=== PATIENT | female | born 1950 | race African-American/Black ===

== ENCOUNTER 2016-06-07 09:43 | Day surgery (SDC) | payer MEDICARE, MEDICAID ==
--- NOTE | 2016-06-02 12:15 | HISTORY AND PHYSICAL E ---
History and Physical NAME: MAYA JACKSON : 1950 AGE: 65Y ADMITTED: 06/07/2016 ROOM: ADMIT DATE: 06/07/2016 REFERRING PHYSICIAN: Dr. Miller. HISTORY OF PRESENT ILLNESS: Patient known to me 2007. She did have colon exam. She did have polyp in her transverse colon resect. At this time, patient for follow-up screening colonoscopy. ALLERGIES: 1. IODINE. 2. ASPIRIN. PAST SURGICAL HISTORY: Hysterectomy. MEDICATIONS: 1. Magnesium oxide. 2. Metformin. 3. Actos. 4. Effient. 5. Protonix. 6. Meloxicam. 7. Fluticasone. SOCIAL HISTORY: Does not smoke. Does not drink. REVIEW OF SYSTEMS: CARDIAC: Hypertension. ENDOCRINE: Negative. GASTROINTESTINAL: Colon screening. NEUROLOGIC: Fibromyalgia. Depression. FAMILY HISTORY: Parents are . Colonoscopy 2013 shows diverticulosis. She did have lipoma proximal ascending colon. She did have polyp in her sigmoid colon. She did have diverticulosis. She did have lipoma of transverse colon. Upper scope was done 2015: Esophagitis, gastritis, duodenitis. At this time, patient for colon exam, referred to us by Dr. Miller. Patient did have CT 08/2015 that shows colonic diverticulosis without diverticulitis. LABORATORY DATA: Her CA is 3.6. Iron is 37, low normal. She does have reflux. CONCLUSIONS: 1. Colon screening. 2. Diverticulosis. 3. Anemia. Patient seen 05/18 after upper scope. She does have history of polyps, diverticulosis. PLAN: Colon exam. DICTATING PHYSICIAN: ALICIA CORTES M.D. [id number] PHY#: [id number] ID: [id number] JOB#: [id number] ACCT: [id number] cc:ALICIA CORTES M.D., SWETANG M.D. >
[~2016-06-07 09:43] MED LIST: EPINEPHRINE INJ 1 MG/10 ML DISP.SYRIN ONE; FLUMAZENIL INJ 0.5 MG/5 ML VIAL IV ONE; GLUCAGON,HUMAN RECOMB 1 MG INJ ONE; GLYCOPYRROLATE INJ 0.4 MG/2 ML VIAL ONE; LIDOCAINE 2% JELLY 30 ML TUBE ONE; NALOXONE HCL INJ/PF 0.4 MG/1 ML SDV ONE; ONDANSETRON HCL INJ/PF 4 MG/2 ML SDV ONE; PROMETHAZINE HCL INJ 25 MG/1 ML VIAL ONE
[2016-06-07] MEDS: MIDAZOLAM 2 MG/2 ML INJ ONE ×3 (10:19→10:31)
[2016-06-07] MEDS: FENTANYL CITRATE INJ/PF 100 MCG/2 ML AMPUL ONE ×3 (10:21→10:33)
[2016-06-07 11:45] VITALS: BP 166/73
--- NOTE | 2016-06-07 14:46 | DISCHARGE SUMMARY E ---
Discharge Summary NAME: MAYA JACKSON : 1950 AGE: 65Y ADMITTED: 06/07/2016 DISCHARGED: 06/07/2016 HOSPITAL COURSE: The patient is a 65-year-old female who presented for colon screening. She does have history of polyps. Today's colonoscopy shows sessile polyp at mid transverse colon, biopsy obtained, diffuse diverticulosis, diminutive polyp at cecum, diminutive polyp at rectum. DISCHARGE PLAN: 1. Soft low-residue diet for 2 days. 2. Awaiting biopsy results. 3. Consider follow-up colonoscopy in 6 months to a year. MEDICATIONS: 1. Gabapentin. 2. Diovan. 3. She takes a blood thinner, Effient. 4. Tramadol. 5. Welchol. PLAN: The patient is to stop her blood thinners today and tomorrow. Awaiting biopsy results. The patient is to see us in the office in the next few days. The patient takes pantoprazole and Effient (prasugrel), stop this today and tomorrow. Consider follow-up colonoscopy in 6 months to a year. DICTATING PHYSICIAN: ALICIA CORTES M.D. [id number] PHY#: [id number] ID: [id number] JOB#: [id number] ACCT: [id number] cc:ALICIA CORTES M.D., SWETANG M.D. >
--- NOTE | 2016-06-07 14:47 | OPERATIVE REPORT E ---
Operative Report NAME: MAYA JACKSON : 1950 AGE: 65Y DATE OF SURGERY: 06/07/2016 ROOM: PREOPERATIVE DIAGNOSES: 1. History of polyps. 2. Colon screening. POSTOPERATIVE DIAGNOSES: 1. A 3 mm polyp cecum, small to biopsy, large amount of fecal material. 2. A 3 mm polyp mid transverse colon, biopsy obtained. 3. A 2 mm polyp rectum. SURGEON: ALICIA CORTES M.D. ANESTHESIA: Versed 4, fentanyl 100. FINDINGS: Prep inadequate. Large amount of diverticulosis. Moderate amount of solid stool scattered around the colon. Severe diverticulosis. A 2 mm polyp cecum. Tried to biopsy it on 2 occasions, unable because the stool keeps covering it. Transverse colon polyp 3 mm biopsy. Rectal polyp small, 2 mm. Diverticulosis. DESCRIPTION: Cecum: Normal. Ascending 2 mm polyp, small. The ascending colon diverticulosis. Transverse colon small polyp. Descending diverticulosis. Rectum: A 2 mm polyp. PLAN: Hold today and tomorrow. Awaiting biopsy results. Consider followup colonoscopy 6 months to a year with better prep. DICTATING PHYSICIAN: ALICIA CORTES M.D. [id number] PHY#: [id number] ID: [id number] JOB#: [id number] ACCT: [id number] cc:ALICIA CORTES M.D. >
== END 2016-06-07 11:50 | disposition home or self-care (01) ==
LOC: END 09:43
PROVIDERS: ATTEND Specialist
PROC: 0DBL8ZX Excision of Transverse Colon, Via Natural or Artificial Opening Endoscopic, Diagnostic (ICD-10-PCS; principal; 2016-06-07 10:00)
DX: Z12.11 Encounter for screening for malignant neoplasm of colon (principal); D12.3 Benign neoplasm of transverse colon; K62.1 Rectal polyp; D12.0 Benign neoplasm of cecum; D64.9 Anemia, unspecified; K57.30 Diverticulosis of large intestine without perforation or abscess without bleeding; I10 Essential (primary) hypertension; M79.7 Fibromyalgia; Z88.6 Allergy status to analgesic agent; Z79.84 Long term (current) use of oral hypoglycemic drugs; Z79.01 Long term (current) use of anticoagulants; Z79.899 Other long term (current) drug therapy
CPT/HCPCS: 45380; 82962; 88305 ×2; J2250; J3010; J1610; J2405; J0171; J2310; J2550; J3490

== ENCOUNTER → 2016-06-08 | Outpatient (CLI) | payer MEDICARE, MEDICAID ==
--- NOTE | 2016-06-08 11:17 | WOMENS IMAGING REPORT ---
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 TECHNIQUE: Dynamic and static grayscale images acquired of the pelvis via transabdominal approach an d recorded on PACS. Additional selected color Doppler and spectral images recorded. LIMITATIONS: None. FINDINGS: The uterus and ovaries are surgically absent. The palpable finding corresponds to a septa iris cystic lesion located just below the skin, measuring 6 x 10 mm. There are lymph nodes present in the pubic and inguinal regions. TECHNICAL DOCUMENTATION: JOB ID: [id number] [employer]- All Rights Reserved
== END ==
LOC: WI 08:58
PROVIDERS: ATTEND Family Medicine
DX: I65.29 Occlusion and stenosis of unspecified carotid artery (principal); R59.0 Localized enlarged lymph nodes
CPT/HCPCS: 76856; 93880

== ENCOUNTER → 2016-11-27 | Day surgery (SDC) | payer MEDICARE, MEDICAID ==
[~2016-11-27] MED LIST changes: +BUPIVACAINE HCL 0.5 % INJ/PF 30 ML SDV ONE; -EPINEPHRINE INJ 1 MG/10 ML DISP.SYRIN ONE; -FLUMAZENIL INJ 0.5 MG/5 ML VIAL IV ONE; -GLUCAGON,HUMAN RECOMB 1 MG INJ ONE; -GLYCOPYRROLATE INJ 0.4 MG/2 ML VIAL ONE; -LIDOCAINE 2% JELLY 30 ML TUBE ONE; +METHYLPREDNISOLONE ACETATE INJ 40 MG/1 ML ML ONE; -NALOXONE HCL INJ/PF 0.4 MG/1 ML SDV ONE; -ONDANSETRON HCL INJ/PF 4 MG/2 ML SDV ONE; -PROMETHAZINE HCL INJ 25 MG/1 ML VIAL ONE
--- NOTE | 2016-11-27 16:33 | RADIOLOGY REPORT (SQ) ---
EXAM DESCRIPTION: INJECT/ASPIR HIP/SHLDR/KNEE; HIP UNILATERAL-1 VIEW; FLUORO/NEEDLE PLACEMENT COMPLETED DATE/TIME: 11/27/2016 3:14 pm REASON FOR STUDY: PAIN IN R HIP; PAIN IN R HIP M25.551 PAIN IN RIGHT HIP COMPARISON: None. FLUOROSCOPY TIME: 19 seconds. No images saved to PACS. LIMITATIONS: None. PROCEDURE: SITE OF INJECTION: Right hip. LOCALIZING CONTRAST TYPE AND DOSE: Iodinated contrast was not used due to history of allergy. MEDICATION TYPE AND DOSE: 3 mL Depo-Medrol and 5 mL Sensorcaine. Using local anesthesia and sterile technique with fluoroscopic guidance, the needle was advanced into the joint. Iodinated contrast was injected to verify intraarticular placement. This was followed by therapeutic injection of the indicated medications. The needle was removed. There were no immediat e complications. Preprocedure pain level: 10/10. Postprocedure pain level: 0/10. IMPRESSION: THERAPEUTIC INJECTION OF THE RIGHT HIP JOINT ABOVE. COMMENT: Patient medication list reviewed: Yes- Quality ID# 130:Eligible professional attests to doc umenting in the medical record they obtained, updated, or reviewed the patient's current medications. . Quality ID 145: Final reports for procedures using fluoroscopy that document radiation exposure susana violette, or exposure time and number of fluorographic images (if radiation exposure indices are not avail able) TECHNICAL DOCUMENTATION: JOB ID: [id number] [employer]- All Rights Reserved
== END ==
LOC: RAD 14:32
PROVIDERS: ATTEND Physician Assistant
PROC: 3E0U33Z Introduction of Anti-inflammatory into Joints, Percutaneous Approach (ICD-10-PCS; principal; 2016-11-27)
DX: M25.551 Pain in right hip (principal)
CPT/HCPCS: 73501; 20610; 77002; J1020

== ENCOUNTER → 2017-04-09 | Outpatient (CLI) | payer MEDICARE, MEDICAID | LOC: OD 14:23 | PROVIDERS: ATTEND Internal Medicine | DX: I25.10 Atherosclerotic heart disease of native coronary artery without angina pectoris (principal); I10 Essential (primary) hypertension; I34.0 Nonrheumatic mitral (valve) insufficiency; I35.1 Nonrheumatic aortic (valve) insufficiency; E78.4 Other hyperlipidemia; E11.9 Type 2 diabetes mellitus without complications; I95.1 Orthostatic hypotension; Z79.899 Other long term (current) drug therapy; Z98.61 Coronary angioplasty status ==

== ENCOUNTER → 2017-04-11 | Outpatient (CLI) | payer MEDICARE, MEDICAID ==
[2017-04-11 10:52] LABS: ALANINE AMINOTRANSFERASE 29 U/L (9-52); ALBUMIN 3.9 g/dL (3.5-5.0); ALKALINE PHOSPHATASE 98 U/L (38-126); ASPARTATE AMINO TRANSFERASE 22 U/L (14-36); BILIRUBIN,DIRECT 0.3 mg/dL (0.0-0.4); BILIRUBIN,TOTAL 0.5 mg/dL (0.2-1.3); CHOLESTEROL 192.53 mg/dL (0-200); Direct HDL 67 mg/dL (>40); TOTAL PROTEIN 6.6 g/dL (6.3-8.2); TRIGLYCERIDES 140 mg/dL (<150)
[2017-04-11 11:03] LABS: DIRECT LDL 101 mg/dL (<100)
== END ==
LOC: OD 09:41
PROVIDERS: ATTEND Internal Medicine
DX: I25.10 Atherosclerotic heart disease of native coronary artery without angina pectoris (principal); I10 Essential (primary) hypertension; E78.4 Other hyperlipidemia; I34.0 Nonrheumatic mitral (valve) insufficiency; I35.1 Nonrheumatic aortic (valve) insufficiency; Z98.61 Coronary angioplasty status; E11.9 Type 2 diabetes mellitus without complications; I95.1 Orthostatic hypotension; Z79.899 Other long term (current) drug therapy
CPT/HCPCS: 36415; 80061; 80076

== ENCOUNTER → 2017-06-04 | Outpatient (CLI) | payer MEDICARE, MEDICAID ==
--- NOTE | 2017-06-04 13:58 | WOMENS IMAGING REPORT ---
EXAM DESCRIPTION: BONE DENSITY HIP/SPINE COMPLETED DATE/TIME: 06/04/2017 10:59 am REASON FOR STUDY: OSTEOPOROSIS M81.0 AGE-RELATED OSTEOPOROSIS W/O CURRENT PATHOLOGICAL FRAC COMPARISON: None. TECHNIQUE: Dual-Energy X-ray Absorptiometry (DEXA) of the AP Spine and Hip. LIMITATIONS: None. FINDINGS: LUMBAR SPINE: The bone mineral density (BMD) measured from L1-L4 in the AP projection correlates with a T-score of 0.7, which is normal as defined by the World Health Organization. HIP: The bone mineral density (BMD) measured in the left hip correlates with a T-score of 0.5, which is no rmal as defined by the World Health Organization. IMPRESSION: 1. LUMBAR SPINE: NORMAL. 2. HIP: NORMAL. COMMENT: The World Health Organization defines low BMD as follows: T-score: Normal: Greater than -1.0 Osteopenia: Between -1.0 and -2.5 Osteoporosis: Less than -2.5 without fractures Established osteoporosis: Less than -2.5 with fractures In general, you may wish to consider: Diagnosis Treatment Follow-up DEXA Normal BMD Prevention 2-3 years Osteopenia Prevention/Therapy 1-2 years Osteoporosis Therapy Yearly TECHNICAL DOCUMENTATION: JOB ID: [id number] [employer]- All Rights Reserved
== END ==
LOC: WI 10:25
PROVIDERS: ATTEND Physician Assistant
DX: M81.0 Age-related osteoporosis without current pathological fracture (principal)
CPT/HCPCS: 77080

== ENCOUNTER → 2017-12-31 | Outpatient (CLI) | payer MEDICARE, MEDICAID | LOC: RAD 09:01 | PROVIDERS: ATTEND Internal Medicine Medical Oncology | DX: C88.4 Extranodal marginal zone B-cell lymphoma of mucosa-associated lymphoid tissue [MALT-lymphoma] (principal); Z53.8 Procedure and treatment not carried out for other reasons ==

== ENCOUNTER 2018-01-09 08:51 | Day surgery (SDC) | payer MEDICARE, MEDICAID ==
[2018-01-09 10:02] LABS: INTERNATIONAL RATION (INR) 0.99; PARTIAL THROMBOPLASTIN TIME 34.5 SEC (23.5-35.8); PROTHROMBIN TIME 13.6 SEC (11.4-15.4)
[2018-01-09 10:04] LABS: ABSOLUTE LYMPHOCYTES (AUTO) 1.8 10^3/uL (0.5-4.7); ABSOLUTE MONOCYTES (AUTO) 0.5 10^3/uL (0.1-1.4); ABSOLUTE NEUT (AUTO) 5.6 10^3/uL (1.7-8.2); BASOPHILS % (AUTO) 0.3 % (0-2); EOSINOPHILS % (AUTO) 0.4 % (0-6); HEMATOCRIT 37.6 % (36.0-47.0); HEMOGLOBIN 12.4 g/dL (12.0-15.5); LYMPHOCYTES % (AUTO) 22.3 % (13-45); MEAN CORPUSCULAR HEMOGLOBIN 29.4 pg (27.0-33.4); MEAN CORPUSCULAR HGB CONC 33.1 g/dL (32.0-36.0); MEAN CORPUSCULAR VOLUME 89 fl (80-97); MONOCYTES % (AUTO) 6.4 % (3-13); PLATELET COUNT 236 10^3/uL (150-450); RED BLOOD COUNT 4.23 10^6/uL (3.72-5.28); RED CELL DISTRIBUTION WIDTH 14.7 % (11.5-14.0); SEGMENTED NEUTROPHILS % (AUTO) 70.6 % (42-78); TOTAL CELLS COUNTED % (AUTO) 100 %
[2018-01-09 10:18] LABS: BLOOD UREA NITROGEN 16 mg/dL (7-20); GLUCOSE 157 mg/dL (75-110)
[2018-01-09] MEDS ORDERED: MIDAZOLAM 2 MG/2 ML INJ ONE (11:18)
[2018-01-09] MEDS ORDERED: FENTANYL CITRATE INJ/PF 100 MCG/2 ML AMPUL ONE ×2 (11:19→11:47)
[2018-01-09] MEDS ORDERED: LIDOCAINE 1% INJ-PF (10 MG/ML) 30 ML SDV ONE (11:19)
--- NOTE | 2018-01-09 12:28 | RADIOLOGY REPORT (SQ) ---
EXAM DESCRIPTION: CT BIOPSY BONE MARROW, NEEDLE; CT NEEDLE PLACEMENT COMPLETED DATE/TIME: 01/09/2018 11:55 am REASON FOR STUDY: MALT-LYMPHOMA; MALT-LYMPHOMA, NEEDLE PLACEMENT C88.4 EXTRNOD MRGNL ZN B-CELL LYMP H OF [place] LYMPHOID Z79.01 CORRECTION (CURRENT) USE OF ANTICOAGULANTS Z79.899 OTHER DIRECTOR DATA PROCESSING (CURRENT) DRUG THERAPY COMPARISON: None. TECHNIQUE: CT guided biopsy of the right iliac crest bone marrow performed with conscious sedation. CT Fluoroscopy Time: [address] scanners at this facility use dose modulation, iterative reconstruction, and/or weight based d osing when appropriate to reduce radiation dose to as low as reasonably achievable (ALARA). [facility]: Dose Right [facility]: CareDose [facility]: Dose Right [facility]: Teradose 4D [facility]: CapRally RADIATION DOSE: CT Rad equipment meets quality standard of care and radiation dose reduction techniq ues were employed. CTDIvol: 4.0 - 20.2 mGy. DLP: 475 mGy-cm.mGy. FINDINGS: After obtaining informed consent and explaining the risks and benefits of conscious sedati on,the patient agreed to the procedure. Prior to the procedure, a time out was performed to verify th e patient's identity and planned procedure. IV conscious sedation was administered and physician direction by the registered nurse using 2 millig thong of Versed and 100 micrograms of fentanyl. Physiologic monitoring was provided before, during, an d after sedation. The total sedation time was 34 minutes. Documentation face to face time, the performing proceduralist, spent monitoring the patient: [address] scanning was performed to localize the percutaneous site for the biopsy approach. After sterile skin prep and local lidocaine for skin and deep tissue anesthesia, a coaxial biopsy nee dle was used to obtain a bone marrow aspirate, and a bone marrow core of tissue. The biopsy tissue wa s received by [facility] lab to be sent out for evaluation. There were no immediate complications. Pathology is pending at the time of dictation. IMPRESSION: CT GUIDED ASPIRATE AND CORE BIOPSY OF THE RIGHT POSTERIOR ILIAC CREST BONE MARROW PERFOR MED WITHOUT IMMEDIATE COMPLICATION. PATHOLOGY PENDING. IV CONSCIOUS SEDATION WITHOUT COMPLICATION. COMMENT: Quality ID 145: Final reports for procedures using fluoroscopy that document radiation exp osure indices, or exposure time and number of fluorographic images (if radiation exposure indices are not available) Patient medication list reviewed: Yes- Quality ID# 130:Eligible professional attests to documenting i n the medical record they obtained, updated, or reviewed the patient's current medications.. TECHNICAL DOCUMENTATION: JOB ID: [id number] Quality ID# 436: Final reports with documentation of one or more dose reduction techniques (e.g., Aut omated exposure control, adjustment of the mA and/or kV according to patient size, use of iterative r econstruction technique) 2010 [employer]- All Rights Reserved Reading location - IP/workstation name: [email or web address]
--- NOTE | 2018-01-09 12:28 | RADIOLOGY REPORT (SQ) ---
EXAM DESCRIPTION: CT BIOPSY BONE MARROW, NEEDLE; CT NEEDLE PLACEMENT COMPLETED DATE/TIME: 01/09/2018 11:55 am REASON FOR STUDY: MALT-LYMPHOMA; MALT-LYMPHOMA, NEEDLE PLACEMENT C88.4 EXTRNOD MRGNL ZN B-CELL LYMP H OF [place] LYMPHOID Z79.01 PRISON (CURRENT) USE OF ANTICOAGULANTS Z79.899 OTHER PUBLIC SERVICES ASSISTANT (CURRENT) DRUG THERAPY COMPARISON: None. TECHNIQUE: CT guided biopsy of the right iliac crest bone marrow performed with conscious sedation. CT Fluoroscopy Time: [address] scanners at this facility use dose modulation, iterative reconstruction, and/or weight based d osing when appropriate to reduce radiation dose to as low as reasonably achievable (ALARA). [facility]: Dose Right [facility]: CareDose [facility]: Dose Right [facility]: Teradose 4D [facility]: [employer] RADIATION DOSE: CT Rad equipment meets quality standard of care and radiation dose reduction techniq ues were employed. CTDIvol: 4.0 - 20.2 mGy. DLP: 475 mGy-cm.mGy. FINDINGS: After obtaining informed consent and explaining the risks and benefits of conscious sedati on,the patient agreed to the procedure. Prior to the procedure, a time out was performed to verify th e patient's identity and planned procedure. IV conscious sedation was administered and physician direction by the registered nurse using 2 millig thong of Versed and 100 micrograms of fentanyl. Physiologic monitoring was provided before, during, an d after sedation. The total sedation time was 34 minutes. Documentation face to face time, the performing proceduralist, spent monitoring the patient: [address] scanning was performed to localize the percutaneous site for the biopsy approach. After sterile skin prep and local lidocaine for skin and deep tissue anesthesia, a coaxial biopsy nee dle was used to obtain a bone marrow aspirate, and a bone marrow core of tissue. The biopsy tissue wa s received by [facility] lab to be sent out for evaluation. There were no immediate complications. Pathology is pending at the time of dictation. IMPRESSION: CT GUIDED ASPIRATE AND CORE BIOPSY OF THE RIGHT POSTERIOR ILIAC CREST BONE MARROW PERFOR MED WITHOUT IMMEDIATE COMPLICATION. PATHOLOGY PENDING. IV CONSCIOUS SEDATION WITHOUT COMPLICATION. COMMENT: Quality ID 145: Final reports for procedures using fluoroscopy that document radiation exp osure indices, or exposure time and number of fluorographic images (if radiation exposure indices are not available) Patient medication list reviewed: Yes- Quality ID# 130:Eligible professional attests to documenting i n the medical record they obtained, updated, or reviewed the patient's current medications.. TECHNICAL DOCUMENTATION: JOB ID: [id number] Quality ID# 436: Final reports with documentation of one or more dose reduction techniques (e.g., Aut omated exposure control, adjustment of the mA and/or kV according to patient size, use of iterative r econstruction technique) 2010 [employer]- All Rights Reserved Reading location - IP/workstation name: [facility]-[email or web address]
[2018-01-09 14:16] VITALS: BP 147/82
== END 2018-01-09 14:05 | disposition home or self-care (01) ==
LOC: RAD 08:51
PROVIDERS: ATTEND Internal Medicine Medical Oncology
DX: C88.4 Extranodal marginal zone B-cell lymphoma of mucosa-associated lymphoid tissue [MALT-lymphoma] (principal); Z79.01 Long term (current) use of anticoagulants; Z79.899 Other long term (current) drug therapy; Z79.82 Long term (current) use of aspirin
CPT/HCPCS: 36415; 84520; 82565; 82947; 85025; 85610; 85730; 38221; 77012; J2250; J3010; J3490

== ENCOUNTER → 2018-01-13 | Outpatient (CLI) | payer MEDICARE, MEDICAID ==
--- NOTE | 2018-01-14 10:20 | RADIOLOGY REPORT (SQ) ---
EXAM DESCRIPTION: PET CT SKULL/THIGH COMPLETED DATE/TIME: 01/13/2018 6:36 pm REASON FOR STUDY: LYMPHOMA C88.4 EXTRNOD MRGNL ZN B-CELL LYMPH OF [place]UC[place]-ASS[place] LYMPHOID COMPARISON: Bone marrow biopsy 01/09/2018 CT abdomen pelvis 02/27/2017 RADIONUCLIDE AND DOSE: 10 mCi F18 FDG The route of agent administration: Intravenous FASTING BLOOD SUGAR: 140 mg/dl CONTRAST TYPE AND DOSE: No CT contrast given. TECHNIQUE: Blood glucose level was verified. Above dose of FDG was injected intravenously. 2-D seg mented attenuation correction images were obtained from the base of the skull to the midthighs. Nonc ontrast CT images were obtained for attenuation correction and fusion with emission images. CT image s were performed without oral or intravenous contrast and are not sensitive for parenchymal lesions. A series of overlapping emission PET images were obtained. Images reviewed and manipulated at [facility] work station by the radiologist. Images stored on PACS. LIMITATIONS: None. FINDINGS: HEAD AND NECK: No areas of abnormal metabolic activity in the soft tissues of the head and neck. CHEST: No areas of abnormal metabolic activity in the chest. ABDOMEN AND PELVIS: No areas of abnormal metabolic activity in the abdomen or pelvis. Expected physi ologic activity is present in the genitourinary system and bowel. PROXIMAL LOWER EXTREMITIES: No areas of abnormal metabolic activity in the soft tissues of the lower extremities. BONES: No abnormal metabolic activity in the visualized skeleton. ADDITIONAL CT FINDINGS: Post cholecystectomy and hysterectomy. Scattered colonic diverticuli. Ventr al hernia containing nonobstructed small bowel and colon. Cervical fusion. Right hip replacement. OTHER: Liver background activity 2.8 SUV. Blood pool background activity 2.1 SUV IMPRESSION: No hypermetabolic lesions are identified TECHNICAL DOCUMENTATION: JOB ID: [id number] [employer]- All Rights Reserved Reading location - IP/workstation name: [email or web address]
== END ==
LOC: RAD 15:54
PROVIDERS: ATTEND Internal Medicine Medical Oncology
DX: C88.4 Extranodal marginal zone B-cell lymphoma of mucosa-associated lymphoid tissue [MALT-lymphoma] (principal)
CPT/HCPCS: 78815; A9552

== ENCOUNTER → 2018-02-28 | Outpatient (CLI) | payer MEDICARE, MEDICAID ==
[2018-02-28 13:39] LABS: ABSOLUTE EOSINOPHILS # (AUTO) 0.1 10^3/uL (0.0-0.6); ABSOLUTE LYMPHOCYTES (AUTO) 2.4 10^3/uL (0.5-4.7); ABSOLUTE MONOCYTES (AUTO) 0.7 10^3/uL (0.1-1.4); ABSOLUTE NEUT (AUTO) 6.2 10^3/uL (1.7-8.2); BASOPHILS % (AUTO) 0.4 % (0-2); EOSINOPHILS % (AUTO) 0.8 % (0-6); HEMATOCRIT 39.5 % (36.0-47.0); HEMOGLOBIN 13.3 g/dL (12.0-15.5); LYMPHOCYTES % (AUTO) 25.5 % (13-45); MEAN CORPUSCULAR HEMOGLOBIN 29.4 pg (27.0-33.4); MEAN CORPUSCULAR HGB CONC 33.7 g/dL (32.0-36.0); MEAN CORPUSCULAR VOLUME 87 fl (80-97); MONOCYTES % (AUTO) 7.5 % (3-13); PLATELET COUNT 277 10^3/uL (150-450); RED BLOOD COUNT 4.53 10^6/uL (3.72-5.28); RED CELL DISTRIBUTION WIDTH 14.5 % (11.5-14.0); SEGMENTED NEUTROPHILS % (AUTO) 65.8 % (42-78); TOTAL CELLS COUNTED % (AUTO) 100 %; WHITE BLOOD COUNT 9.4 10^3/uL (4.0-10.5)
== END ==
LOC: OD 12:36
PROVIDERS: ATTEND Radiology Radiation Oncology
DX: C88.4 Extranodal marginal zone B-cell lymphoma of mucosa-associated lymphoid tissue [MALT-lymphoma] (principal)
CPT/HCPCS: 36415; 83615; 85025

== ENCOUNTER → 2018-03-19 | Outpatient (CLI) | payer MEDICARE, MEDICAID ==
--- NOTE | 2018-03-19 12:11 | WOMENS IMAGING REPORT ---
EXAM DESCRIPTION: 3D DX MAMMO BILAT COMPLETED DATE/TIME: 03/19/2018 10:29 am REASON FOR STUDY: BILATERAL DIAGNOSTIC MAMMO/C50.411 COMPARISON: Multiple since 2010 TECHNIQUE: Standard craniocaudal and mediolateral oblique views of each breast recorded using digita l acquisition and breast tomosynthesis. Additional left breast 90 mediolateral view. LIMITATIONS: None. FINDINGS: RIGHT BREAST MASSES: No suspicious masses. CALCIFICATIONS: No new or suspicious calcifications. ARCHITECTURAL DISTORTION: None. DEVELOPING DENSITY: None. ASYMMETRY: None noted. OTHER: No other significant findings. LEFT BREAST MASSES: No suspicious masses. CALCIFICATIONS: No new or suspicious calcifications. ARCHITECTURAL DISTORTION: Tiny focus of postsurgical architectural distortion in the upper outer quad rant left breast at the site of prior lumpectomy. DEVELOPING DENSITY: None. ASYMMETRY: None noted. OTHER: No other significant finding. Read with the assistance of CAD: .[facility] - R2 [employer] Version 1.3 .[facility] - R2 Cenova Version 1.3 .[facility] - R2 Cenova Version 2.4 .[facility] - R2 Cenova Version 2.4 .[facility] - R2 Website/Blog Editor Version 9.2 IMPRESSION: No mammographic/tomosynthesis evidence for malignancy bilaterally BREAST DENSITY: b. There are scattered areas of fibroglandular density. BIRAD: 2 Benign findings. RECOMMENDATION: RECOMMENDED FOLLOW UP: Please continue yearly bilateral screening mammography/ tomos ynthesis in 2019 SPECIFIC INTERVENTION/IMAGING/CONSULTATION RECOMMENDED:No additional intervention/ imaging/consultati on needed at this time. COMMUNICATION:Patient notified by letter COMMENT: The patient has been notified of the results by letter per SA requirements. Additional no tification policies are in place for contacting patient with suspicious or incomplete findings. Quality ID #225: The [employer] recommends an annual screening mammogram for women aged 40 years or over. This facility utilizes a reminder system to ensure that all patients receive reminder letters, and/or direct phone calls for appointments. This includes reminders for routine scr eening mammograms, diagnostic mammograms, or other Breast Imaging Interventions when appropriate. Th is patient will be placed in the appropriate reminder system. The [employer] (ACR) has developed recommendations for screening MRI of the breast s in certain patient populations, to be used in conjunction with mammography. Breast MRI surveillanc e may be appropriate for women with more than 20% lifetime risk of developing breast cancer as deter mined by genetic testing, significant family history of the disease, or history of mantle radiation f or Hodgkins Disease. ACR Practice Guidelines 2008. DBT Technology DBT is a type of tomographic mammography. With conventional mammography, overlapping breast tissue ma y make lesions difficult to detect, even with good compression. DBT uses an x-ray tube that rotates a round the breast, taking images at different angles. These images are then combined to create thin sl ices of the breast that the radiologist can view as a 3D reconstruction. The [employer] unit can perform full-field digital mammograms (2D imaging); or DBT (3D imaging); or both, in a combination mode that quickly performs both the mammogram and the tomosynthesis scan while the breast is still compressed. PQRS 6045F: Fluoroscopic imaging is not utilized for breast tomosynthesis. TECHNICAL DOCUMENTATION: FINDING NUMBER: (1) ASSESSMENT: (1) JOB ID: [id number] [employer]- All Rights Reserved Reading location - IP/workstation name: [facility]-RR
== END ==
LOC: WI 09:57
PROVIDERS: ATTEND Internal Medicine Hematology & Oncology
DX: C50.411 Malignant neoplasm of upper-outer quadrant of right female breast (principal)
CPT/HCPCS: 77066; G0279; 77062

== ENCOUNTER → 2018-04-12 | Outpatient (CLI) | payer MEDICARE, MEDICAID ==
[2018-04-12 08:33] LABS: ANION GAP 12 (5-19); BLOOD UREA NITROGEN 16 mg/dL (7-20); CALCIUM 9.7 mg/dL (8.4-10.2); CARBON DIOXIDE 27 mmol/L (22-30); CHLORIDE 103 mmol/L (98-107); GLUCOSE 127 mg/dL (75-110); POTASSIUM 4.8 mmol/L (3.6-5.0); SODIUM 142.2 mmol/L (137-145)
== END ==
LOC: OD 07:09
PROVIDERS: ATTEND Family Medicine
DX: E87.5 Hyperkalemia (principal)
CPT/HCPCS: 36415; 80048

== ENCOUNTER → 2019-03-26 | Outpatient (CLI) | payer MEDICARE, MEDICAID ==
--- NOTE | 2019-03-26 14:26 | WOMENS IMAGING REPORT ---
EXAM DESCRIPTION: 3D DX MAMMO BILAT COMPLETED DATE/TIME: 03/26/2019 12:00 pm REASON FOR STUDY: C50.411 MALIGNANT NEOPLASM OF UPPER-OUTER QUADRANT OF RIGHT FEMALE BREAST COMPARISON: Multiple since 2010 EXAM PARAMETERS: Standard craniocaudal and mediolateral oblique views of each breast recorded using digital acquisition and breast tomosynthesis. Additional left breast 90 mediolateral view Read with the assistance of CAD: .[employer] Version 9.2 LIMITATIONS: None. FINDINGS: RIGHT BREAST MASSES: No suspicious masses. CALCIFICATIONS: No new or suspicious calcifications. ARCHITECTURAL DISTORTION: None. ASYMMETRY: None noted. OTHER: No other significant findings. LEFT BREAST MASSES: No suspicious masses. CALCIFICATIONS: Stable calcifications in the left retroareolar region ARCHITECTURAL DISTORTION: Small focus of architectural distortion left breast 12 o'clock position, ab out 6 cm from the nipple in the area of prior lumpectomy. ASYMMETRY: None noted. OTHER: No other significant finding. IMPRESSION: No mammographic/ tomosynthesis evidence for malignancy bilaterally BREAST DENSITY: b. There are scattered areas of fibroglandular density. BIRAD: ASSESSMENT: 2 Benign findings. RECOMMENDATION: RECOMMENDED FOLLOW UP: Please continue yearly mammography/ tomosynthesis. SPECIFIC INTERVENTION/IMAGING/CONSULTATION RECOMMENDED:No additional intervention/ imaging/consultati on needed at this time. COMMUNICATION:The negative/benign results were communicated to the patient. COMMENT: The patient has been notified of the results by letter per MQSA requirements. Additional no tification policies are in place for contacting patient with suspicious or incomplete findings. Quality ID #225: The [employer] recommends an annual screening mammogram for women aged 40 years or over. This facility utilizes a reminder system to ensure that all patients receive reminder letters, and/or direct phone calls for appointments. This includes reminders for routine scr eening mammograms, diagnostic mammograms, or other Breast Imaging Interventions when appropriate. Th is patient will be placed in the appropriate reminder system. TECHNICAL DOCUMENTATION: FINDING NUMBER: (1) ASSESSMENT: (1) JOB ID: [id number] [employer]- All Rights Reserved Reading location - IP/workstation name: [email or web address]
== END ==
LOC: WI 11:15
PROVIDERS: ATTEND Internal Medicine Hematology & Oncology
DX: C50.411 Malignant neoplasm of upper-outer quadrant of right female breast (principal)
CPT/HCPCS: 77066; G0279; 77062

== ENCOUNTER 2019-11-01 23:27 | Inpatient (IN) | payer MEDICARE, MEDICAID ==
[2019-11-02] MEDS ORDERED: NORMAL SALINE 1000 ML 1,000 ML IV ONE (00:20)
--- NOTE | 2019-11-02 00:29 | ER Document Report ---
ED GI/ - General Chief Complaint: Nausea/Vomiting Stated Complaint: NAUSEA,VOMITING,DIZZINESS Time Seen by Provider: 11/02/19 00:17 Primary Care Provider: FABIAN JOSE MD [ACTIVE STAFF] - Follow up as needed Mode of Arrival: Medic Information source: Patient Notes: 69-year-old female presented to ED for complaint of nausea and vomiting. She states she ate seafood dinner about 630 tonight at 10 PM tonight she started having nausea and vomiting. She states she has vomited 3 times since then. She is alert oriented respirations regular nonlabored speaking in full sentences. She did come in via EMS and they gave her Zofran in route to the hospital. TRAVEL OUTSIDE OF THE [place] IN LAST 30 DAYS: No - HPI Patient complains to provider of: Vomiting. No: Abdominal pain Onset: This evening Timing/Duration: Sudden Quality of pain: No pain Pain Level: Denies Associated symptoms: Nausea, Vomiting. denies: Diarrhea Exacerbated by: Denies Relieved by: Denies Similar symptoms previously: Yes Recently seen / treated by doctor: No - Related Data Allergies/Adverse Reactions: iodine [Iodine] Allergy (Severe, Verified 11/02/19 04:11) Anaphylaxis aspirin [Aspirin] Adverse Reaction (Mild, Verified 11/02/19 04:11) GI upset Past Medical History - General Information source: Patient - Social History Smoking Status: Former Smoker Frequency of alcohol use: Occasional Drug Abuse: None Family History: Reviewed & Not Pertinent Patient has suicidal ideation: No Patient has homicidal ideation: No - Past Medical History Cardiac Medical History: Reports: Hx Coronary Artery Disease - CARDIAC STENT X 1, Hx Hypercholesterolemia, Hx Hypertension - ON MEDICATION Pulmonary Medical History: Reports: None EENT Medical History: Reports: None Neurological Medical History: Reports: None Endocrine Medical History: Reports: Hx Diabetes Mellitus Type 2 Renal/ Medical History: Reports: None Malignancy Medical History: Reports: None GI Medical History: Reports: Hx Gastroesophageal Reflux Disease, Hx Irritable Bowel Musculoskeletal Medical History: Reports Hx Arthritis - ALL OVER, Reports Hx Fibromyalgia, Reports Hx Musculoskeletal Deformity Skin Medical History: Reports None Psychiatric Medical History: Reports: None Traumatic Medical History: Reports: None Infectious Medical History: Reports: None Past Surgical History: Reports: Hx Cardiac Catheterization, Hx Cardiac Surgery - stents 2011, Hx Cholecystectomy, Hx Hysterectomy, Hx Orthopedic Surgery - left elbow surgery, Other - Stent placement in 2011 - Immunizations Hx Diphtheria, Pertussis, Tetanus Vaccination: Yes - 2018 Hx Pneumococcal Vaccination: 02/05/16 Review of Systems - Review of Systems Constitutional: No symptoms reported EENT: No symptoms reported Cardiovascular: No symptoms reported Respiratory: No symptoms reported Gastrointestinal: Nausea, Vomiting. denies: Abdominal pain, Diarrhea Genitourinary: No symptoms reported Female Genitourinary: No symptoms reported Musculoskeletal: No symptoms reported Skin: No symptoms reported Hematologic/Lymphatic: No symptoms reported Neurological/Psychological: No symptoms reported -: Yes All other systems reviewed and negative Physical Exam - Vital signs Vitals: Temp 97.4 F 11/01/19 23:35 Interpretation: Hypertensive - General General appearance: Appears well, Alert - HEENT Head: Normocephalic, Atraumatic Eyes: Normal Pupils: PERRL - Respiratory Respiratory status: No respiratory distress Chest status: Nontender Breath sounds: Normal Chest palpation: Normal - Cardiovascular Rhythm: Regular Heart sounds: Normal auscultation Murmur: No - Abdominal Inspection: Normal Distension: No distension Bowel sounds: Hypoactive Tenderness: Nontender. No: Tender Organomegaly: No organomegaly - Back Back: Normal, Nontender - Extremities General upper extremity: Normal inspection, Nontender, Normal color, Normal ROM, Normal temperature General lower extremity: Normal inspection, Nontender, Normal color, Normal ROM, Normal temperature, Normal weight bearing. No: Martin's sign - Neurological Neuro grossly intact: Yes Cognition: Normal Orientation: AAOx4 Conover Coma Scale Eye Opening: Spontaneous Rajesh Coma Scale Verbal: Oriented Conover Coma Scale Motor: Obeys Commands Rajesh Coma Scale Total: 15 Speech: Normal Motor strength normal: LUE, RUE, LLE, RLE Sensory: Normal Notes: Positive lateral nystagmus - Psychological Associated symptoms: Normal affect, Normal mood - Skin Skin Temperature: Warm Skin Moisture: Dry Skin Color: Normal Course - Re-evaluation Re-evalutation: 11/02/19 07:33 Patient originally came in for nausea and vomiting and dizzines her original chemistry showed a low calcium. This was treated with a gram of calcium g luconate. Calcium level was normal with second chemistry. Ionized calcium was normal. Patient continues to be dizzy. She continues to have nystagmus horizontal. She stated last time she had the dizziness she was given meclizine and it only stayed for a while and she was able to go home. She has not had any relief from her dizziness and nystagmus this time. Will monitor another 20 minutes and if dizziness and nystagmus continues will call attending physician. Patient states she is still nauseated will give another dose of Zofran. Head CT did not show any acute processes. 11/02/19 08:15 Dizziness continues nystagmus continues I did call Dr. Burks who is on-call for Dr. Miller. He stated to admit the patient to a medical bed observation. Patient has been admitted observation. - Vital Signs Vital signs: Temp Pulse Resp BP Pulse Ox 97.4 F 15 190/97 H 96 11/01/19 23:35 11/02/19 07:25 11/02/19 07:25 11/02/19 07:25 - Laboratory Result Diagrams: 11/02/19 00:28 11/02/19 03:32 Laboratory results interpreted by me: 11/02/19 11/02/19 11/02/19 00:28 00:28 01:44 WBC 10.6 H RDW 14.4 H Potassium 3.1 L Chloride 119 H Carbon Dioxide 18 L Glucose 137 H Calcium 6.9 L* Alkaline Phosphatase Total Protein 5.1 L Albumin 2.5 L Lipase 10.7 L Urine Glucose (UA) 50 H Urine Ketones TRACE H Urine Urobilinogen 4.0 H Ur Leukocyte Esterase LARGE H 11/02/19 03:32 WBC RDW Potassium Chloride Carbon Dioxide Glucose 165 H Calcium Alkaline Phosphatase 142 H Total Protein Albumin Lipase Urine Glucose (UA) Urine Ketones Urine Urobilinogen Ur Leukocyte Esterase - Diagnostic Test Radiology reviewed: Image reviewed, Reports reviewed Discharge - Discharge Clinical Impression: Vertigo, Dizziness Nausea & vomiting Qualifiers: Vomiting type: unspecified Vomiting Intractability: non-intractable Qualified Code(s): R11.2 - Nausea with vomiting, unspecified Disposition: ADMITTED OBSERVATION Admitting Provider: Kimmie Unit Admitted: Medical Floor Referrals: FABIAN JOSE MD [ACTIVE STAFF] - Follow up as needed
[2019-11-02 00:53] LABS: ABSOLUTE BASOPHILS # (AUTO) 0.1 10^3/uL (0.0-0.2); ABSOLUTE LYMPHOCYTES (AUTO) 2.3 10^3/uL (0.5-4.7); ABSOLUTE MONOCYTES (AUTO) 0.6 10^3/uL (0.1-1.4); ABSOLUTE NEUT (AUTO) 7.6 10^3/uL (1.7-8.2); BASOPHILS % (AUTO) 0.5 % (0-2); EOSINOPHILS % (AUTO) 0.4 % (0-6); HEMATOCRIT 38.4 % (36.0-47.0); HEMOGLOBIN 12.8 g/dL (12.0-15.5); LYMPHOCYTES % (AUTO) 21.6 % (13-45); MEAN CORPUSCULAR HEMOGLOBIN 30.5 pg (27.0-33.4); MEAN CORPUSCULAR HGB CONC 33.3 g/dL (32.0-36.0); MEAN CORPUSCULAR VOLUME 91 fl (80-97); MONOCYTES % (AUTO) 5.9 % (3-13); PLATELET COUNT 211 10^3/uL (150-450); RED CELL DISTRIBUTION WIDTH 14.4 % (11.5-14.0); SEGMENTED NEUTROPHILS % (AUTO) 71.6 % (42-78); TOTAL CELLS COUNTED % (AUTO) 100 %; WHITE BLOOD COUNT 10.6 10^3/uL (4.0-10.5)
[2019-11-02 01:12] LABS: ALBUMIN 2.5 g/dL (3.5-5.0); ALKALINE PHOSPHATASE 97 U/L (38-126); ANION GAP 6 (5-19); ASPARTATE AMINO TRANSFERASE 16 U/L (14-36); BILIRUBIN,TOTAL 0.3 mg/dL (0.2-1.3); BLOOD UREA NITROGEN 15 mg/dL (7-20); CARBON DIOXIDE 18 mmol/L (22-30); CHLORIDE 119 mmol/L (98-107); GLUCOSE 137 mg/dL (75-110); POTASSIUM 3.1 mmol/L (3.6-5.0); TOTAL PROTEIN 5.1 g/dL (6.3-8.2)
[2019-11-02 01:22] LABS: CALCIUM 6.9 mg/dL (8.4-10.2)
[2019-11-02] MEDS ORDERED: CALCIUM GLUCONATE 1000 MG/10 ML INJ IV ONE (01:24)
[2019-11-02 02:20] LABS: APPEARANCE,URINE CLEAR; BILIRUBIN,URINE NEGATIVE (NEGATIVE); COLOR,URINE YELLOW; GLUCOSE, URINE 50 mg/dL (NEGATIVE); KETONES,URINE TRACE mg/dL (NEGATIVE); LEUKOCYTE ESTERASE,URINE LARGE (NEGATIVE); NITRITE,URINE NEGATIVE (NEGATIVE); PROTEIN,URINE NEGATIVE (NEGATIVE); URINE SPECIFIC GRAVITY 1.015
[2019-11-02 04:08] LABS: ALBUMIN 3.7 g/dL (3.5-5.0); ALKALINE PHOSPHATASE 142 U/L (38-126); ASPARTATE AMINO TRANSFERASE 19 U/L (14-36); BILIRUBIN,TOTAL 0.5 mg/dL (0.2-1.3); BLOOD UREA NITROGEN 18 mg/dL (7-20); CALCIUM 9.8 mg/dL (8.4-10.2); CHLORIDE 105 mmol/L (98-107); GLUCOSE 165 mg/dL (75-110); POTASSIUM 3.9 mmol/L (3.6-5.0); TOTAL PROTEIN 6.8 g/dL (6.3-8.2)
[2019-11-02 04:22] LABS: ANION GAP 7 (5-19)
[2019-11-02 04:23] LABS: CARBON DIOXIDE 27 mmol/L (22-30)
[2019-11-02] MEDS ORDERED: MECLIZINE HCL 25 MG TABLET PO ONE (05:09)
--- NOTE | 2019-11-02 06:46 | RADIOLOGY REPORT (SQ) ---
EXAM DESCRIPTION: [facility]: CT HEAD WITHOUT IV CONTRAST CLINICAL HISTORY: 69 years Female; headache continued dizziness nausea vomiting; TECHNIQUE: Noncontrast CT head. All CT scans at this facility use dose modulation, iterative reconstruction, and/or weight based dosing when appropriate to reduce radiation dose to as low as reasonably achievable. COMPARISON: CT 03/02/2014 FINDINGS: Sweeney matter, white matter, ventricles, and cisterns are within normal limits. No acute hemorrhage or mass effect. As on prior exam, the pituitary fossa is enlarged, up to 1.5 cm, filled with low density. Stalk is midline. Bilateral internal carotid artery calcifications are noted. Visualized portions of paranasal sinuses and mastoids are clear. Visualized portions of the calvarium are within normal limits. IMPRESSION: 1. No acute intracranial findings. 2. Large low-density pituitary fossa, likely empty sella syndrome. Cannot exclude pituitary cystic lesion. This has not changed since 2013.
[2019-11-02] MEDS ORDERED: ONDANSETRON HCL INJ/PF 4 MG/2 ML SDV IV ONE (07:39)
[2019-11-02] MEDS ORDERED: ONDANSETRON HCL INJ/PF 4 MG/2 ML SDV IV PRN (11:18)
[2019-11-02] MEDS ORDERED: MECLIZINE HCL 25 MG TABLET PO PRN (11:19)
[2019-11-02] MEDS: LOSARTAN POTASSIUM 50 MG TABLET PO SCH (11:53)
[2019-11-02] MEDS: CARVEDILOL 12.5 MG TABLET PO SCH ×2 (11:53→21:22)
[2019-11-02] MEDS ORDERED: OXYCODONE HCL IR 5 MG TABLET PO PRN (14:15)
[2019-11-02] MEDS ORDERED: (PENDING PHARMACY ID) (Naloxone Hcl [Narcan] 4 MG) NASL PRN (14:15)
[2019-11-02] MEDS ORDERED: DEXTROSE 40% GEL 15 GM TUBE PO PRN ×2 (14:19)
[2019-11-02] MEDS ORDERED: DEXTROSE 50%-WATER 25 GM/50 ML DISP.SYRIN IV PRN ×2 (14:19)
[2019-11-02] MEDS ORDERED: GLUCAGON,HUMAN RECOMB 1 MG INJ IM PRN (14:19)
[2019-11-02] MEDS: GABAPENTIN 400 MG CAPSULE PO SCH ×2 (15:40→21:22)
[2019-11-02] MEDS: CEFTRIAXONE 1 GM/D5W RTU 1 GM/50 ML RTUPB IV SCH (15:41)
[2019-11-02] MEDS: INSULIN LISPRO 100 UNIT/ML 3 ML VIAL SUBCUT SCH ×2 (16:49→21:23)
[2019-11-02] MEDS: METFORMIN HCL 500 MG TABLET PO SCH (17:24)
[2019-11-02] MEDS: GLIMEPIRIDE 1 MG TABLET PO SCH (17:24)
[2019-11-02] MEDS ORDERED: (PENDING PHARMACY ID) (Iron [Iron] 65 MG) PO SCH (18:00)
[2019-11-02] MEDS ORDERED: (PENDING PHARMACY ID) (Milnacipran Hcl [Savella] 50 MG) PO SCH (18:00)
[2019-11-02] MEDS: FERROUS SULFATE 325 MG TABLET PO SCH (18:22)
[2019-11-02] MEDS ORDERED: NORMAL SALINE 1000 ML 1,000 ML IV PRN (21:15)
--- NOTE | 2019-11-02 21:15 | PDOC H&P ---
History of Present Illness Admission Date/PCP: 11/02/19 14:24 BHARAT THOMPSON MD Patient complains of: Nausea, Vomiting, Dizziness History of Present Illness: MAYA JACKSON is a 69 year old female patient of Dr Thompson who presented to the ED via EMS with several hours of sudden onset nausea, vomiting and dizziness that she described as the room spinning. Patient reported onset of her symptom after a meal of seafood about 6:30 pm on 11/01/2019. She reported several episodes of vomiting with significant nausea prior to her arrival at the ED. despite treatment with IV Zofran her symptoms persist necessitating her hospitalization for further evaluation and management. She reported similar episode several years ago but responded to Meclizine therapy. She denied any fall, trauma, or assault before onset of her symptom. Her morbidities are listed below. Past Medical History Cardiac Medical History: Reports: Coronary Artery Disease - CARDIAC STENT X 1, Hyperlipidema, Hypertension - ON MEDICATION Denies: Atrial Fibrillation, Congestive Heart Failure, Myocardial Infarction, Peripheral Vascular Disease, Pulmonary Embolism, Heart Murmur Pulmonary Medical History: Reports: None Denies: Asthma, Bronchitis, Chronic Obstructive Pulmonary Disease (COPD), Pneumonia, Respiratory Failure, Sleep Apnea, Tuberculosis EENT Medical History: Reports: None Neurological Medical History: Reports: None Denies: Seizures Endocrine Medical History: Reports: Diabetes Mellitus Type 2 Denies: Hyperthyroidism, Hypothyroidism Renal/ Medical History: Reports: None Denies: End Stage Renal Disease Malignancy Medical History: Reports: None Denies: Breast Cancer, Cervical Cancer, Leukemia, Lung Cancer, Ovarian Cancer GI Medical History: Reports: Gastroesophageal Reflux Disease Denies: Crohn's Disease, Hiatal Hernia Musculoskeltal Medical History: Reports: Arthritis - ALL OVER, Fibromyalgia Skin Medical History: Reports: None Psychiatric Medical History: Reports: None Denies: Bipolar Disorder, Dementia, Depression, Post Traumatic Stress Disorder Traumatic Medical History: Reports: None Hematology: Reports: Anemia - HX. OF Denies: Hemophilia, Sickle Cell Disease Infectious Medical History: Reports: None Denies: HIV Past Surgical History Past Surgical History: Reports: Cardiac Catheterization, Cholecystectomy, Hysterectomy, Orthopedic Surgery - left elbow surgery, Other - Stent placement in 2011 Denies: Amputation, Colostomy, Pacemaker Social History Smoking Status: Former Smoker Electronic Cigarette use?: No Frequency of Alcohol Use: Occasional Hx Recreational Drug Use: No Drugs: None Hx Prescription Drug Abuse: No - Advance Directive Resuscitation Status: Full Code Family History Family History: Reviewed & Not Pertinent Parental Family History Reviewed: Yes Children Family History Reviewed: Yes Sibling(s) Family History Reviewed.: Yes Medication/Allergy Home Medications: Carvedilol [Coreg 12.5 mg Tablet] 12.5 mg PO Q12 02/27/17 Glimepiride [Amaryl 1 mg Tablet] 1 mg PO BID 02/27/17 Metformin HCl [Glucophage] 1,000 mg PO BID 02/27/17 Oxycodone HCl [Oxy-Ir 5 mg Tablet] 5 mg PO Q6HP PRN 02/27/17 Losartan Potassium 100 mg PO DAILY 01/08/18 Amlodipine Besylate [Norvasc 5 mg Tablet] 5 mg PO DAILY 11/02/19 Atorvastatin Calcium [Lipitor 40 mg Tablet] 40 mg PO QHS 11/02/19 Cholecalciferol (Vitamin D3) [Vitamin D3] 125 mcg PO DAILY 11/02/19 Diclofenac Sodium 1 gm TP QID 11/02/19 Esomeprazole Magnesium 40 mg PO DAILY 11/02/19 Ezetimibe 10 mg PO DAILY 11/02/19 Gabapentin [Neurontin 400 mg Capsule] 400 mg PO TID 11/02/19 Hemp Drops 1 dose PO DAILY 11/02/19 Iron 65 mg PO BID 11/02/19 Levocetirizine Dihydrochloride [Allergy Relief] 5 mg PO QHS 11/02/19 Milnacipran HCl [Savella] 50 mg PO BID 11/02/19 Naloxegol Oxalate [Movantik 25 mg Tablet] 25 mg PO QAM 11/02/19 Naloxone HCl [Narcan] 4 mg NASL PRN PRN 11/02/19 Allergies/Adverse Reactions: iodine [Iodine] Allergy (Severe, Verified 11/02/19 04:11) Anaphylaxis aspirin [Aspirin] Adverse Reaction (Mild, Verified 11/02/19 04:11) GI upset Review of Systems Constitutional: ABSENT: chills, fever(s), headache(s), weight gain, weight loss Eyes: ABSENT: visual disturbances Ears: ABSENT: hearing changes Nose, Mouth, and Throat: PRESENT: vertigo. ABSENT: headache(s) Cardiovascular: ABSENT: chest pain, dyspnea on exertion, edema, orthropnea, palpitations Respiratory: ABSENT: cough, hemoptysis Gastrointestinal: PRESENT: nausea, vomiting. ABSENT: abdominal pain, constipation, diarrhea, hematemesis, hematochezia Genitourinary: PRESENT: difficulty urinating, dysuria - severally days and she has been using Cramberry juice. ABSENT: hematuria Musculoskeletal: ABSENT: joint swelling Integumentary: ABSENT: rash, wounds Neurological: PRESENT: dizziness, vertigo. ABSENT: abnormal gait, abnormal speech, confusion, focal weakness, syncope Psychiatric: ABSENT: anxiety, depression, homidical ideation, suicidal ideation Endocrine: ABSENT: cold intolerance, heat intolerance, menstrual abnormalities, polydipsia, polyuria Hematologic/Lymphatic: ABSENT: easy bleeding, easy bruising, lymphadenopathy Physical Exam Vital Signs: Temp Pulse Resp BP Pulse Ox 98.4 F 66 18 147/70 H 96 11/02/19 19:34 11/02/19 19:34 11/02/19 19:34 11/02/19 19:34 11/02/19 19:34 Intake & Output 11/01/19 11/02/19 11/03/19 06:59 06:59 06:59 Intake Total 1000 410 Balance 1000 410 Weight 85.8 kg General appearance: PRESENT: no acute distress, well-developed, well-nourished Head exam: PRESENT: atraumatic, normocephalic Eye exam: PRESENT: conjunctiva pink, EOMI, PERRLA. ABSENT: scleral icterus Ear exam: PRESENT: normal external ear exam Mouth exam: PRESENT: moist, tongue midline Neck exam: PRESENT: full ROM. ABSENT: carotid bruit, JVD, lymphadenopathy, thyromegaly Respiratory exam: PRESENT: clear to auscultation bill Cardiovascular exam: PRESENT: RRR. ABSENT: diastolic murmur, rubs, systolic murmur Pulses: PRESENT: normal dorsalis pedis pul, +2 pedal pulses bilateral Vascular exam: PRESENT: normal capillary refill GI/Abdominal exam: PRESENT: normal bowel sounds, soft. ABSENT: distended, guarding, mass, organolmegaly, rebound, tenderness Rectal exam: PRESENT: deferred Extremities exam: ABSENT: pedal edema Neurological exam: PRESENT: alert, awake, oriented to person, oriented to place, oriented to time, oriented to situation, CN II-XII grossly intact, other - thee is observed horzontal nystagus. ABSENT: motor sensory deficit Psychiatric exam: PRESENT: appropriate affect, normal mood. ABSENT: homicidal ideation, suicidal ideation Skin exam: PRESENT: dry, intact, warm. ABSENT: cyanosis, rash Results Laboratory Results: 11/02/19 00:28 11/02/19 03:32 11/02/19 11/02/19 11/02/19 00:28 00:28 00:28 WBC 10.6 H RBC 4.20 Hgb 12.8 Hct 38.4 MCV 91 MCH 30.5 MCHC 33.3 RDW 14.4 H Plt Count 211 Seg Neutrophils % 71.6 Sodium 143.1 Potassium 3.1 L Chloride 119 H Carbon Dioxide 18 L Anion Gap 6 BUN 15 Creatinine 0.53 Est GFR ( Amer) > 60 Glucose 137 H Calcium 6.9 L* Ionized Calcium Joey Magnesium 2.0 Total Bilirubin 0.3 AST 16 Alkaline Phosphatase 97 Total Protein 5.1 L Albumin 2.5 L Lipase 10.7 L Urine Color Urine Appearance Urine pH Ur Specific Perry Urine Protein Urine Glucose (UA) Urine Ketones Urine Blood Urine Nitrite Ur Leukocyte Esterase Urine WBC (Auto) Urine RBC (Auto) 11/02/19 11/02/19 11/02/19 01:44 02:03 03:32 WBC RBC Hgb Hct MCV MCH MCHC RDW Plt Count Seg Neutrophils % Sodium 139.0 Potassium 3.9 Chloride 105 Carbon Dioxide 27 Anion Gap 7 BUN 18 Creatinine 0.75 Est GFR ( Amer) > 60 Glucose 165 H Calcium 9.8 Ionized Calcium Joey 1.14 Magnesium Total Bilirubin 0.5 AST 19 Alkaline Phosphatase 142 H Total Protein 6.8 Albumin 3.7 Lipase Urine Color YELLOW Urine Appearance CLEAR Urine pH 6.0 Ur Specific Perry 1.015 Urine Protein NEGATIVE Urine Glucose (UA) 50 H Urine Ketones TRACE H Urine Blood NEGATIVE Urine Nitrite NEGATIVE Ur Leukocyte Esterase LARGE H Urine WBC (Auto) 7 Urine RBC (Auto) 0 Impressions: Head CT 11/02/19 06:08 IMPRESSION: 1. No acute intracranial findings. 2. Large low-density pituitary fossa, likely empty sella syndrome. Cannot exclude pituitary cystic lesion. This has not changed since 2013. Assessment & Plan - Diagnosis (1) Vertigo Is this a current diagnosis for this admission?: Yes Plan: See covering admitting attending physician orders for details. (2) Nystagmus due to benign paroxysmal positional vertigo Is this a current diagnosis for this admission?: Yes Plan: See covering admitting attending physician orders for details. (3) Nausea & vomiting Qualifiers: Vomiting type: unspecified Vomiting Intractability: non-intractable Qualified Code(s): R11.2 - Nausea with vomiting, unspecified Is this a current diagnosis for this admission?: Yes Plan: See covering admitting attending physician orders for details. (4) Suspected UTI Is this a current diagnosis for this admission?: Yes Plan: See covering admitting attending physician orders for details. (5) Hypokalemia Is this a current diagnosis for this admission?: Yes Plan: See covering admitting attending physician orders for details. (6) Hypocalcemia Is this a current diagnosis for this admission?: Yes Plan: See covering admitting attending physician orders for details. (7) Type 2 diabetes mellitus Qualifiers: Diabetes mellitus complication status: with unspecified complications Is this a current diagnosis for this admission?: Yes Plan: See covering admitting attending physician orders for details. (8) Hypertension Qualifiers: Hypertension type: essential hypertension Qualified Code(s): I10 - Essential (primary) hypertension Is this a current diagnosis for this admission?: Yes Plan: See covering admitting attending physician orders for details. - Time Time Spent: 50 to 70 Minutes Medications reviewed and adjusted accordingly: Yes Anticipated discharge: Home Within: Other - Inpatient Certification Based on my medical assessment, after consideration of the patient's comorbidities, presenting symptoms, or acuity I expect that the services needed warrant INPATIENT care.: Yes I certify that my determination is in accordance with my understanding of Medicare's requirements for reasonable and necessary INPATIENT services [42 CFR 412.3e].: Yes Medical Necessity: Significant Comorbidiites Make Outpatient Treatment Too Risky, Need Close Monitoring Due to Risk of Patient Decompensation, Need For IV Fluids, Need for IV Antibiotics, Risk of Complication if Not Cared For in Hospital, Risk of Diagnosis Which Will Require Inpatient Eval/Care/Monitoring Post Hospital 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
[2019-11-02] MEDS: ATORVASTATIN CALCIUM 40 MG TABLET PO SCH (21:22)
[2019-11-02] MEDS: CETIRIZINE 5 MG TABLET PO SCH (21:22)
[2019-11-02] MEDS ORDERED: (PENDING PHARMACY ID) (Levocetirizine Dihydrochloride [Allergy Relief] 5 MG) PO SCH (22:00)
[2019-11-03 05:54] LABS: ABSOLUTE EOSINOPHILS # (AUTO) 0.1 10^3/uL (0.0-0.6); ABSOLUTE MONOCYTES (AUTO) 0.7 10^3/uL (0.1-1.4); ABSOLUTE NEUT (AUTO) 5.2 10^3/uL (1.7-8.2); BASOPHILS % (AUTO) 0.6 % (0-2); EOSINOPHILS % (AUTO) 1.4 % (0-6); HEMATOCRIT 35.4 % (36.0-47.0); HEMOGLOBIN 11.9 g/dL (12.0-15.5); LYMPHOCYTES % (AUTO) 25.1 % (13-45); MEAN CORPUSCULAR HEMOGLOBIN 30.5 pg (27.0-33.4); MEAN CORPUSCULAR HGB CONC 33.7 g/dL (32.0-36.0); MEAN CORPUSCULAR VOLUME 90 fl (80-97); MONOCYTES % (AUTO) 8.2 % (3-13); PLATELET COUNT 189 10^3/uL (150-450); RED BLOOD COUNT 3.91 10^6/uL (3.72-5.28); RED CELL DISTRIBUTION WIDTH 14.1 % (11.5-14.0); SEGMENTED NEUTROPHILS % (AUTO) 64.7 % (42-78); TOTAL CELLS COUNTED % (AUTO) 100 %
[2019-11-03] MEDS: GABAPENTIN 400 MG CAPSULE PO SCH ×3 (06:05→23:56)
[2019-11-03] MEDS: PANTOPRAZOLE SODIUM 40 MG TABLET.DR PO SCH (06:05)
[2019-11-03 06:15] LABS: ALBUMIN 3.2 g/dL (3.5-5.0); ALKALINE PHOSPHATASE 114 U/L (38-126); ASPARTATE AMINO TRANSFERASE 17 U/L (14-36); BILIRUBIN,TOTAL 0.4 mg/dL (0.2-1.3); BLOOD UREA NITROGEN 19 mg/dL (7-20); CALCIUM 9.1 mg/dL (8.4-10.2); CARBON DIOXIDE 27 mmol/L (22-30); CHLORIDE 105 mmol/L (98-107); GLUCOSE 149 mg/dL (75-110); POTASSIUM 4.1 mmol/L (3.6-5.0); TOTAL PROTEIN 6.2 g/dL (6.3-8.2)
[2019-11-03 06:45] LABS: ANION GAP 5 (5-19)
[2019-11-03] MEDS ORDERED: (PENDING PHARMACY ID) (Naloxegol Oxalate 25 MG) PO SCH (08:00)
[2019-11-03] MEDS ORDERED: NORMAL SALINE 1000 ML 1,000 ML IV PRN (08:00)
[2019-11-03] MEDS: INSULIN LISPRO 100 UNIT/ML 3 ML VIAL SUBCUT SCH ×4 (08:44→23:52)
[2019-11-03] MEDS: METFORMIN HCL 500 MG TABLET PO SCH ×2 (08:49→19:00)
[2019-11-03] MEDS: GLIMEPIRIDE 1 MG TABLET PO SCH ×2 (08:54→17:00)
[2019-11-03] MEDS: CARVEDILOL 12.5 MG TABLET PO SCH ×2 (09:03→23:56)
[2019-11-03] MEDS: CHOLECALCIFEROL (D3) 1,000 UNIT (25 MCG) TABLET PO SCH (09:04)
[2019-11-03] MEDS: AMLODIPINE BESYLATE 5 MG TABLET PO SCH (09:04)
[2019-11-03] MEDS: FERROUS SULFATE 325 MG TABLET PO SCH ×2 (09:04→19:00)
[2019-11-03] MEDS: LOSARTAN POTASSIUM 50 MG TABLET PO SCH (09:04)
[2019-11-03] MEDS: ENOXAPARIN SODIUM INJ 40 MG/0.4 ML DISP.SYRIN SUBCUT SCH (09:05)
[2019-11-03] MEDS: MECLIZINE HCL 25 MG TABLET PO SCH ×2 (09:07→18:57)
[2019-11-03] MEDS: EZETIMIBE 10 MG TABLET PO SCH (09:08)
--- NOTE | 2019-11-03 09:35 | PDOC PROGRESS REPORT ---
Subjective Progress Note for:: 11/03/19 Subjective:: Patient was admitted for the vertigo Patient have a history of the vertigo in the past Patient is currently put on the meclizine as needed CT of the head was negative Patient's denied any chest pain no short of breath Patient still have a vertigo and ringing in the ear Reason For Visit: PERSISTENT VERTIGO WITH NAUSEA,VOMITING,AND NYSTAG Physical Exam Vital Signs: Temp Pulse Resp BP Pulse Ox 98.1 F 60 16 146/72 H 97 11/03/19 07:40 11/03/19 07:40 11/03/19 07:40 11/03/19 07:40 11/03/19 07:40 Intake & Output 11/02/19 11/03/19 11/04/19 06:59 06:59 06:59 Intake Total 1000 730 Balance 1000 730 Weight 85.8 kg General appearance: PRESENT: no acute distress, well-developed, well-nourished Head exam: PRESENT: atraumatic, normocephalic Eye exam: PRESENT: conjunctiva pink, EOMI, PERRLA. ABSENT: scleral icterus Ear exam: PRESENT: normal external ear exam Mouth exam: PRESENT: moist, tongue midline Neck exam: PRESENT: full ROM. ABSENT: carotid bruit, JVD, lymphadenopathy, thyromegaly Respiratory exam: PRESENT: clear to auscultation bill Cardiovascular exam: PRESENT: RRR. ABSENT: diastolic murmur, rubs, systolic murmur Pulses: PRESENT: normal dorsalis pedis pul, +2 pedal pulses bilateral Vascular exam: PRESENT: normal capillary refill GI/Abdominal exam: PRESENT: normal bowel sounds, soft. ABSENT: distended, guarding, mass, organolmegaly, rebound, tenderness Rectal exam: PRESENT: deferred Neurological exam: PRESENT: alert, awake, oriented to person, oriented to place, oriented to time, oriented to situation, CN II-XII grossly intact. ABSENT: motor sensory deficit Psychiatric exam: PRESENT: appropriate affect, normal mood. ABSENT: homicidal ideation, suicidal ideation Skin exam: PRESENT: dry, intact, warm. ABSENT: cyanosis, rash Results Laboratory Results: 11/03/19 05:25 11/03/19 05:25 11/03/19 11/03/19 05:25 05:25 WBC 8.0 RBC 3.91 Hgb 11.9 L Hct 35.4 L MCV 90 MCH 30.5 MCHC 33.7 RDW 14.1 H Plt Count 189 Seg Neutrophils % 64.7 Sodium 136.1 L Potassium 4.1 Chloride 105 Carbon Dioxide 27 Anion Gap 5 BUN 19 Creatinine 1.08 Est GFR ( Amer) > 60 Glucose 149 H Calcium 9.1 Magnesium 1.8 Total Bilirubin 0.4 AST 17 Alkaline Phosphatase 114 Total Protein 6.2 L Albumin 3.2 L Impressions: Head CT 11/02/19 06:08 IMPRESSION: 1. No acute intracranial findings. 2. Large low-density pituitary fossa, likely empty sella syndrome. Cannot exclude pituitary cystic lesion. This has not changed since 2013. Assessment & Plan - Diagnosis (1) Nausea & vomiting Qualifiers: Vomiting type: unspecified Vomiting Intractability: non-intractable Qualified Code(s): R11.2 - Nausea with vomiting, unspecified Is this a current diagnosis for this admission?: Yes Plan: Most likely a from vertigo currently on a as needed Zofran (2) Nystagmus due to benign paroxysmal positional vertigo Is this a current diagnosis for this admission?: Yes Plan: Continues the meclizine 25 mg p.o. every 8 (3) Vertigo Is this a current diagnosis for this admission?: Yes Plan: We will get the MRI of the head continues the meclizine physical therapy evaluation and ENT evaluations with ongoing recurrent issues (4) Congestive heart failure Is this a current diagnosis for this admission?: Yes Plan: Continues to current medications (5) Coronary artery disease Qualifiers: Coronary Disease-Associated Artery/Lesion type: unspecified vessel or lesion type Is this a current diagnosis for this admission?: Yes (6) Type 2 diabetes mellitus Qualifiers: Diabetes mellitus complication status: with unspecified complications Is this a current diagnosis for this admission?: Yes (7) Hypertension Qualifiers: Hypertension type: essential hypertension Qualified Code(s): I10 - Essential (primary) hypertension Is this a current diagnosis for this admission?: Yes - Time Time Spent with patient: 15-24 minutes Level of Care: TELE Medications reviewed and adjusted accordingly: Yes Anticipated discharge: Home, Other Within: Other - Plan Summary Plan Summary: Get the physical therapy evaluations continues the current medications
[2019-11-03] MEDS ORDERED: (PENDING PHARMACY ID) (Cholecalciferol (Vitamin D3) [Vitamin D3] 125 MCG) PO SCH (10:00)
[2019-11-03] MEDS ORDERED: MECLIZINE HCL 25 MG TABLET PO SCH (14:00)
[2019-11-03] MEDS: CEFTRIAXONE 1 GM/D5W RTU 1 GM/50 ML RTUPB IV SCH (14:12)
--- NOTE | 2019-11-03 15:50 | RADIOLOGY REPORT (SQ) ---
EXAM DESCRIPTION: MRI HEAD WITHOUT IMAGES COMPLETED DATE/TIME: 11/03/2019 2:44 pm REASON FOR STUDY: dizziness R82.90 UNSPECIFIED ABNORMAL FINDINGS IN URINE COMPARISON: CT 11/02/2019 TECHNIQUE: Multiplanar imaging includes non-contrasted T1, T2, FLAIR, and Diffusion with ADC map seq uences. Images stored on PACS. LIMITATIONS: None. FINDINGS: ANATOMY: Empty sella. Midline structures otherwise intact. CSF SPACES: Normal in size and contour. No hemorrhage. CEREBRUM: A few high-signal intensity lesions scattered throughout the white matter on FLAIR imaging with distribution suggesting chronic micro-vascular ischemic change. Sulci and gyri normal in size a nd contour. No evidence of hemorrhage, mass or extraaxial fluid collection. POSTERIOR FOSSA: No signal alteration. No hemorrhage. No edema, masses or mass effect. Internal erikcson tory canals, cerebello-pontine angles, mastoids normal. DIFFUSION: Negative for acute or sub-acute infarction. ORBITS: No masses. Globes normal. PARANASAL SINUSES: No fluid levels. Mucosa normal. OTHER: No other significant finding. IMPRESSION: 1. Minimal small vessel changes. No acute or suspicious intracranial abnormality. EVIDENCE OF ACUTE STROKE: NO. TECHNICAL DOCUMENTATION: JOB ID: [id number] 2010 [employer]- All Rights Reserved Reading location - IP/workstation name: [email or web address]
[2019-11-03] MEDS: CETIRIZINE 5 MG TABLET PO SCH (23:56)
[2019-11-03] MEDS: ATORVASTATIN CALCIUM 40 MG TABLET PO SCH (23:56)
[2019-11-04] MEDS: MECLIZINE HCL 25 MG TABLET PO SCH ×3 (01:59→17:44)
[2019-11-04 05:41] LABS: ABSOLUTE EOSINOPHILS # (AUTO) 0.1 10^3/uL (0.0-0.6); ABSOLUTE LYMPHOCYTES (AUTO) 2.3 10^3/uL (0.5-4.7); ABSOLUTE MONOCYTES (AUTO) 0.6 10^3/uL (0.1-1.4); ABSOLUTE NEUT (AUTO) 4.8 10^3/uL (1.7-8.2); BASOPHILS % (AUTO) 0.5 % (0-2); EOSINOPHILS % (AUTO) 1.4 % (0-6); HEMATOCRIT 36.1 % (36.0-47.0); LYMPHOCYTES % (AUTO) 29.6 % (13-45); MEAN CORPUSCULAR HEMOGLOBIN 30.1 pg (27.0-33.4); MEAN CORPUSCULAR HGB CONC 33.2 g/dL (32.0-36.0); MEAN CORPUSCULAR VOLUME 91 fl (80-97); MONOCYTES % (AUTO) 7.8 % (3-13); PLATELET COUNT 212 10^3/uL (150-450); RED BLOOD COUNT 3.98 10^6/uL (3.72-5.28); SEGMENTED NEUTROPHILS % (AUTO) 60.7 % (42-78); TOTAL CELLS COUNTED % (AUTO) 100 %; WHITE BLOOD COUNT 7.9 10^3/uL (4.0-10.5)
[2019-11-04 06:00] LABS: BLOOD UREA NITROGEN 16 mg/dL (7-20); CALCIUM 9.1 mg/dL (8.4-10.2); GLUCOSE 116 mg/dL (75-110); POTASSIUM 4.4 mmol/L (3.6-5.0)
[2019-11-04 06:07] LABS: ANION GAP 5 (5-19); CARBON DIOXIDE 26 mmol/L (22-30); CHLORIDE 108 mmol/L (98-107)
[2019-11-04] MEDS: GABAPENTIN 400 MG CAPSULE PO SCH ×3 (07:36→21:33)
[2019-11-04] MEDS: PANTOPRAZOLE SODIUM 40 MG TABLET.DR PO SCH (07:37)
[2019-11-04] MEDS: GLIMEPIRIDE 1 MG TABLET PO SCH ×2 (08:39→17:44)
[2019-11-04] MEDS: METFORMIN HCL 500 MG TABLET PO SCH ×2 (08:40→17:45)
[2019-11-04] MEDS: INSULIN LISPRO 100 UNIT/ML 3 ML VIAL SUBCUT SCH ×4 (08:43→21:41)
--- NOTE | 2019-11-04 08:56 | PDOC PROGRESS REPORT ---
Subjective Progress Note for:: 11/04/19 Subjective:: Patient is currently doing fair MRI of the head is negative for any acute finding Patient's vertigo is getting better No chest pain no short of breath Reason For Visit: PERSISTENT VERTIGO WITH NAUSEA,VOMITING,AND NYSTAG Physical Exam Vital Signs: Temp Pulse Resp BP Pulse Ox 98.5 F 79 16 125/64 99 11/03/19 23:16 11/03/19 23:16 11/03/19 23:16 11/03/19 23:16 11/03/19 23:16 Intake & Output 11/03/19 11/04/19 11/05/19 06:59 06:59 06:59 Intake Total 730 1040 Balance 730 1040 Weight 85.8 kg 85.8 kg General appearance: PRESENT: no acute distress, well-developed, well-nourished Head exam: PRESENT: atraumatic, normocephalic Eye exam: PRESENT: conjunctiva pink, EOMI, PERRLA. ABSENT: scleral icterus Ear exam: PRESENT: normal external ear exam Mouth exam: PRESENT: moist, tongue midline Neck exam: PRESENT: full ROM. ABSENT: carotid bruit, JVD, lymphadenopathy, thyromegaly Respiratory exam: PRESENT: clear to auscultation bill Cardiovascular exam: PRESENT: RRR. ABSENT: diastolic murmur, rubs, systolic murmur Pulses: PRESENT: normal dorsalis pedis pul, +2 pedal pulses bilateral Vascular exam: PRESENT: normal capillary refill GI/Abdominal exam: PRESENT: normal bowel sounds, soft. ABSENT: distended, guarding, mass, organolmegaly, rebound, tenderness Rectal exam: PRESENT: deferred Neurological exam: PRESENT: alert, awake, oriented to person, oriented to place, oriented to time, oriented to situation, reflexes normal, CN II-XII grossly intact, normal gait. ABSENT: motor sensory deficit Psychiatric exam: PRESENT: appropriate affect, normal mood. ABSENT: homicidal ideation, suicidal ideation Skin exam: PRESENT: dry, intact, warm. ABSENT: cyanosis, rash Results Laboratory Results: 11/04/19 05:13 11/04/19 05:13 11/04/19 11/04/19 05:13 05:13 WBC 7.9 RBC 3.98 Hgb 12.0 Hct 36.1 MCV 91 MCH 30.1 MCHC 33.2 RDW 14.0 Plt Count 212 Seg Neutrophils % 60.7 Sodium 139.1 Potassium 4.4 Chloride 108 H Carbon Dioxide 26 Anion Gap 5 BUN 16 Creatinine 0.97 Est GFR ( Amer) > 60 Glucose 116 H Calcium 9.1 11/02/19 01:44 Clean Catch Midstream Urine Culture - Final Mixed Urogenital Maru Impressions: Head CT 11/02/19 06:08 IMPRESSION: 1. No acute intracranial findings. 2. Large low-density pituitary fossa, likely empty sella syndrome. Cannot exclude pituitary cystic lesion. This has not changed since 2013. Head MRI 11/03/19 00:00 IMPRESSION: 1. Minimal small vessel changes. No acute or suspicious intracranial abnormality. EVIDENCE OF ACUTE STROKE: NO. Assessment & Plan - Diagnosis (1) Nausea & vomiting Qualifiers: Vomiting type: unspecified Vomiting Intractability: non-intractable Qualified Code(s): R11.2 - Nausea with vomiting, unspecified Is this a current diagnosis for this admission?: Yes Plan: Currently all resolved mostly from the vertigo (2) Nystagmus due to benign paroxysmal positional vertigo Is this a current diagnosis for this admission?: Yes Plan: Currently all resolved (3) Vertigo Is this a current diagnosis for this admission?: Yes Plan: Continues the p.o. meclizine (4) Congestive heart failure Is this a current diagnosis for this admission?: Yes Plan: Continues to current medications (5) Coronary artery disease Qualifiers: Coronary Disease-Associated Artery/Lesion type: unspecified vessel or lesion type Is this a current diagnosis for this admission?: Yes (6) Type 2 diabetes mellitus Qualifiers: Diabetes mellitus complication status: with unspecified complications Is this a current diagnosis for this admission?: Yes (7) Hypertension Qualifiers: Hypertension type: essential hypertension Qualified Code(s): I10 - Essential (primary) hypertension Is this a current diagnosis for this admission?: Yes - Time Time Spent with patient: 15-24 minutes Level of Care: TELE Medications reviewed and adjusted accordingly: Yes Anticipated discharge: Home Within: Other - Plan Summary Plan Summary: We will stop the IV fluid stop the IV antibiotic continues to physical therapy evaluations continues the p.o. meclizine discussed with the patient and the nursing staff if the patient is getting better hopefully discharge tomorrow
[2019-11-04] MEDS: FERROUS SULFATE 325 MG TABLET PO SCH ×2 (09:54→17:44)
[2019-11-04] MEDS: LOSARTAN POTASSIUM 50 MG TABLET PO SCH (09:54)
[2019-11-04] MEDS: AMLODIPINE BESYLATE 5 MG TABLET PO SCH (09:55)
[2019-11-04] MEDS: CARVEDILOL 12.5 MG TABLET PO SCH ×2 (09:55→21:29)
[2019-11-04] MEDS: EZETIMIBE 10 MG TABLET PO SCH (09:55)
[2019-11-04] MEDS: ENOXAPARIN SODIUM INJ 40 MG/0.4 ML DISP.SYRIN SUBCUT SCH (09:56)
[2019-11-04] MEDS: CHOLECALCIFEROL (D3) 1,000 UNIT (25 MCG) TABLET PO SCH (09:56)
[2019-11-04] MEDS: CETIRIZINE 5 MG TABLET PO SCH (21:29)
[2019-11-04] MEDS: ATORVASTATIN CALCIUM 40 MG TABLET PO SCH (21:29)
[2019-11-05] MEDS: MECLIZINE HCL 25 MG TABLET PO SCH ×2 (03:39→09:51)
[2019-11-05 05:28] LABS: ANION GAP 5 (5-19); BLOOD UREA NITROGEN 17 mg/dL (7-20); CALCIUM 9.1 mg/dL (8.4-10.2); CARBON DIOXIDE 27 mmol/L (22-30); CHLORIDE 105 mmol/L (98-107); GLUCOSE 142 mg/dL (75-110); POTASSIUM 4.2 mmol/L (3.6-5.0)
[2019-11-05] MEDS: PANTOPRAZOLE SODIUM 40 MG TABLET.DR PO SCH (06:00)
[2019-11-05] MEDS: GABAPENTIN 400 MG CAPSULE PO SCH ×2 (06:00→14:11)
[2019-11-05] MEDS: INSULIN LISPRO 100 UNIT/ML 3 ML VIAL SUBCUT SCH ×3 (08:43→16:20)
[2019-11-05] MEDS: METFORMIN HCL 500 MG TABLET PO SCH ×2 (09:07→16:52)
[2019-11-05] MEDS: EZETIMIBE 10 MG TABLET PO SCH (09:07)
[2019-11-05] MEDS: GLIMEPIRIDE 1 MG TABLET PO SCH ×2 (09:51→16:51)
[2019-11-05] MEDS: AMLODIPINE BESYLATE 5 MG TABLET PO SCH (09:52)
[2019-11-05] MEDS: FERROUS SULFATE 325 MG TABLET PO SCH (09:52)
[2019-11-05] MEDS: CARVEDILOL 12.5 MG TABLET PO SCH (09:52)
[2019-11-05] MEDS: ENOXAPARIN SODIUM INJ 40 MG/0.4 ML DISP.SYRIN SUBCUT SCH (09:52)
[2019-11-05] MEDS: LOSARTAN POTASSIUM 50 MG TABLET PO SCH (09:52)
[2019-11-05] MEDS: CHOLECALCIFEROL (D3) 1,000 UNIT (25 MCG) TABLET PO SCH (09:52)
--- NOTE | 2019-11-05 12:42 | PDOC DISCHARGE SUMMARY ---
Impression - Admit/DC Date/PCP Admission Date/Primary Care Provider: 11/02/19 14:24 BHARAT THOMPSON MD Discharge Date: 11/05/19 - Discharge Diagnosis (1) Nausea & vomiting Is this a current diagnosis for this admission?: Yes (2) Nystagmus due to benign paroxysmal positional vertigo Is this a current diagnosis for this admission?: Yes (3) Vertigo Is this a current diagnosis for this admission?: Yes (4) Congestive heart failure Is this a current diagnosis for this admission?: Yes (5) Coronary artery disease Is this a current diagnosis for this admission?: Yes (6) Type 2 diabetes mellitus Is this a current diagnosis for this admission?: Yes (7) Hypertension Is this a current diagnosis for this admission?: Yes - Additional Information Resuscitation Status: Full Code Discharge Diet: Diabetic Discharge Activity: Activity As Tolerated Referrals: FABIAN JOSE MD [ACTIVE STAFF] - 11/10/19 9:15 am BHARAT THOMPSON MD [Primary Care Provider] - 11/13/19 3:15 pm TARYN CRUZ DO [ASSOCIATE] - Prescriptions: Meclizine HCl [Antivert 25 mg Tablet] 25 mg PO Q8A #90 tablet Home Medications: Carvedilol [Coreg 12.5 mg Tablet] 12.5 mg PO Q12 02/27/17 Glimepiride [Amaryl 1 mg Tablet] 1 mg PO BID 02/27/17 Metformin HCl [Glucophage] 1,000 mg PO BID 02/27/17 Oxycodone HCl [Oxy-Ir 5 mg Tablet] 5 mg PO Q6HP PRN 02/27/17 Losartan Potassium 100 mg PO DAILY 01/08/18 Amlodipine Besylate [Norvasc 5 mg Tablet] 5 mg PO DAILY 11/02/19 Atorvastatin Calcium [Lipitor 40 mg Tablet] 40 mg PO QHS 11/02/19 Cholecalciferol (Vitamin D3) [Vitamin D3] 125 mcg PO DAILY 11/02/19 Diclofenac Sodium 1 gm TP QID 11/02/19 Esomeprazole Magnesium 40 mg PO DAILY 11/02/19 Ezetimibe 10 mg PO DAILY 11/02/19 Gabapentin [Neurontin 400 mg Capsule] 400 mg PO TID 11/02/19 Hemp Drops 1 dose PO DAILY 11/02/19 Iron 65 mg PO BID 11/02/19 Levocetirizine Dihydrochloride [Allergy Relief] 5 mg PO QHS 11/02/19 Milnacipran HCl [Savella] 50 mg PO BID 11/02/19 Naloxegol Oxalate [Movantik 25 mg Tablet] 25 mg PO QAM 11/02/19 Naloxone HCl [Narcan] 4 mg NASL PRN PRN 11/02/19 Meclizine HCl [Antivert 25 mg Tablet] 25 mg PO Q8A #90 tablet 11/05/19 History of Present Illiness History of Present Illness: MAYA JACKSON is a 69 year old female Is a 69-year-old female admitting in the hospital for the vertigo symptoms and the dizziness and nausea vomiting which consistence with the benign positional vertigo patients happened before Initial CT head was negative patient is put on meclizine and admitting in the hospital for further evaluations Hospital Course Hospital Course: This 69-year-old female's with the multiple medical problems came to the emergency department with the feeling vertigo is a type of the symptoms with the dizziness patient have a history of the vertigo in the past which is consistent with the patient's clinical symptoms Patient was put in the hospitals because of the symptoms and nystagmus patients underwent for the CT of the head was negative MRI of the head was also negative Since urine culture is also negative Patient EKG is sinus rhythms Recently seen by Dr. EUCEDA cardiac work-up is all stable Patient's response with the meclizine's getting better patient is walking the hallway with the walker without any problems patient's p.o. intake is good patient's blood work is all stable Patient at this point discharged home with the meclizine we also get the ENT evaluations but unfortunately unable to see in the hospital suggest follow outpatient We also suggest the home health and physical therapy at home Discussed with the patient about fall precautions Continues the other medications follow outpatients Dr. Euceda and ENT Physical Exam Vital Signs: Temp Pulse Resp BP Pulse Ox 99.0 F 75 17 171/70 H 100 11/05/19 12:20 11/05/19 12:20 11/05/19 12:20 11/05/19 12:20 11/05/19 12:20 Intake & Output 11/04/19 11/05/19 11/06/19 06:59 06:59 06:59 Intake Total 1040 2280 Balance 1040 2280 Weight 85.8 kg 85.5 kg General appearance: PRESENT: no acute distress, well-developed, well-nourished Head exam: PRESENT: atraumatic, normocephalic Eye exam: PRESENT: conjunctiva pink, EOMI, PERRLA. ABSENT: scleral icterus Ear exam: PRESENT: normal external ear exam Mouth exam: PRESENT: moist, tongue midline Neck exam: ABSENT: carotid bruit, JVD, lymphadenopathy, thyromegaly Respiratory exam: PRESENT: clear to auscultation bill. ABSENT: rales, rhonchi, wheezes Cardiovascular exam: PRESENT: RRR. ABSENT: diastolic murmur, rubs, systolic murmur Pulses: PRESENT: normal dorsalis pedis pul Vascular exam: PRESENT: normal capillary refill GI/Abdominal exam: PRESENT: normal bowel sounds, soft. ABSENT: distended, guarding, mass, organolmegaly, rebound, tenderness Rectal exam: PRESENT: deferred Extremities exam: PRESENT: full ROM. ABSENT: calf tenderness, clubbing, pedal edema Neurological exam: PRESENT: alert, awake, oriented to person, oriented to place, oriented to time, oriented to situation, CN II-XII grossly intact. ABSENT: motor sensory deficit Psychiatric exam: PRESENT: appropriate affect, normal mood. ABSENT: homicidal ideation, suicidal ideation Skin exam: PRESENT: dry, intact, warm. ABSENT: cyanosis, rash Results Laboratory Results: WBC 7.9 10^3/uL (4.0-10.5) 11/04/19 05:13 RBC 3.98 10^6/uL (3.72-5.28) 11/04/19 05:13 Hgb 12.0 g/dL (12.0-15.5) 11/04/19 05:13 Hct 36.1 % (36.0-47.0) 11/04/19 05:13 MCV 91 fl (80-97) 11/04/19 05:13 MCH 30.1 pg (27.0-33.4) 11/04/19 05:13 MCHC 33.2 g/dL (32.0-36.0) 11/04/19 05:13 RDW 14.0 % (11.5-14.0) 11/04/19 05:13 Plt Count 212 10^3/uL (150-450) 11/04/19 05:13 Lymph % (Auto) 29.6 % (13-45) 11/04/19 05:13 [place] % (Auto) 7.8 % (3-13) 11/04/19 05:13 Eos % (Auto) 1.4 % (0-6) 11/04/19 05:13 Baso % (Auto) 0.5 % (0-2) 11/04/19 05:13 Absolute Neuts (auto) 4.8 10^3/uL (1.7-8.2) 11/04/19 05:13 Absolute Lymphs (auto) 2.3 10^3/uL (0.5-4.7) 11/04/19 05:13 Absolute Monos (auto) 0.6 10^3/uL (0.1-1.4) 11/04/19 05:13 Absolute Eos (auto) 0.1 10^3/uL (0.0-0.6) 11/04/19 05:13 Absolute Basos (auto) 0.0 10^3/uL (0.0-0.2) 11/04/19 05:13 Seg Neutrophils % 60.7 % (42-78) 11/04/19 05:13 Sodium 136.9 mmol/L (137-145) L 11/05/19 04:43 Potassium 4.2 mmol/L (3.6-5.0) 11/05/19 04:43 Chloride 105 mmol/L (98-107) 11/05/19 04:43 Carbon Dioxide 27 mmol/L (22-30) 11/05/19 04:43 Anion Gap 5 (5-19) 11/05/19 04:43 BUN 17 mg/dL (7-20) 11/05/19 04:43 Creatinine 0.85 mg/dL (0.52-1.25) 11/05/19 04:43 Est GFR ( Amer) > 60 (>60) 11/05/19 04:43 Est GFR (MDRD) Non-Af > 60 (>60) 11/05/19 04:43 Glucose 142 mg/dL (75-110) H 11/05/19 04:43 POC Glucose 157 mg/dL (70-110) H 11/05/19 11:20 Hemoglobin A1c % 7.5 % (4.7-6.0) H 11/03/19 05:25 Calcium 9.1 mg/dL (8.4-10.2) 11/05/19 04:43 Ionized Calcium Joey 1.14 mmol/L (1.14-1.30) 11/02/19 02:03 Magnesium 1.8 mg/dL (1.6-2.3) 11/03/19 05:25 Total Bilirubin 0.4 mg/dL (0.2-1.3) 11/03/19 05:25 Direct Bilirubin 0.0 mg/dL (0.0-0.4) 11/03/19 05:25 Neonat Total Bilirubin Not Reportable 11/03/19 05:25 Neonat Direct Bilirubin Not Reportable 11/03/19 05:25 Neonat Indirect Bili Not Reportable 11/03/19 05:25 AST 17 U/L (14-36) 11/03/19 05:25 ALT 9 U/L (<35) 11/03/19 05:25 Alkaline Phosphatase 114 U/L (38-126) 11/03/19 05:25 Total Protein 6.2 g/dL (6.3-8.2) L 11/03/19 05:25 Albumin 3.2 g/dL (3.5-5.0) L 11/03/19 05:25 Lipase 10.7 U/L (23-300) L 11/02/19 00:28 Urine Color YELLOW 11/02/19 01:44 Urine Appearance CLEAR 11/02/19 01:44 Urine pH 6.0 (5.0-9.0) 11/02/19 01:44 Ur Specific [place] 1.015 11/02/19 01:44 Urine Protein NEGATIVE mg/dL (NEGATIVE) 11/02/19 01:44 Urine Glucose (UA) 50 mg/dL (NEGATIVE) H 11/02/19 01:44 Urine Ketones TRACE mg/dL (NEGATIVE) H 11/02/19 01:44 Urine Blood NEGATIVE (NEGATIVE) 11/02/19 01:44 Urine Nitrite NEGATIVE (NEGATIVE) 11/02/19 01:44 Urine Bilirubin NEGATIVE (NEGATIVE) 11/02/19 01:44 Urine Urobilinogen 4.0 mg/dL (<2.0) H 11/02/19 01:44 Ur Leukocyte Esterase LARGE (NEGATIVE) H 11/02/19 01:44 Urine WBC (Auto) 7 /HPF 11/02/19 01:44 Urine RBC (Auto) 0 /HPF 11/02/19 01:44 U Hyaline Cast (Auto) 3 /LPF 11/02/19 01:44 Urine Bacteria (Auto) TRACE /HPF 11/02/19 01:44 Squamous Epi Cells Auto <1 /HPF 11/02/19 01:44 Urine Mucus (Auto) RARE /LPF 11/02/19 01:44 Urine Ascorbic Acid NEGATIVE (NEGATIVE) 11/02/19 01:44 Impressions: Head CT 11/02/19 06:08 IMPRESSION: 1. No acute intracranial findings. 2. Large low-density pituitary fossa, likely empty sella syndrome. Cannot exclude pituitary cystic lesion. This has not changed since 2013. Head MRI 11/03/19 00:00 IMPRESSION: 1. Minimal small vessel changes. No acute or suspicious intracranial abnormality. EVIDENCE OF ACUTE STROKE: NO. Plan Time Spent: Greater than 30 Minutes Stroke Is this a Stroke Patient?: No Acute Heart Failure - Is this a Heart Failure Patient?: No
[2019-11-05 16:17] VITALS: BP 168/63
== END 2019-11-05 17:30 | disposition home or self-care (01) | DRG 149 ==
LOC: ER 23:27 → EH 11-02 08:10 → 4W 11-02 09:07 → OBSVTOIN 11-02 14:24
PROVIDERS: ADMIT Internal Medicine; ATTEND Family Medicine
DX: H81.4 Vertigo of central origin (principal); I25.10 Atherosclerotic heart disease of native coronary artery without angina pectoris; E87.6 Hypokalemia; E83.51 Hypocalcemia; I50.9 Heart failure, unspecified; I11.0 Hypertensive heart disease with heart failure; R11.2 Nausea with vomiting, unspecified; Z79.899 Other long term (current) drug therapy; E11.9 Type 2 diabetes mellitus without complications; K21.9 Gastro-esophageal reflux disease without esophagitis; M79.7 Fibromyalgia; M19.90 Unspecified osteoarthritis, unspecified site; Z95.5 Presence of coronary angioplasty implant and graft; Z90.49 Acquired absence of other specified parts of digestive tract; Z90.710 Acquired absence of both cervix and uterus; Z79.84 Long term (current) use of oral hypoglycemic drugs; Z88.6 Allergy status to analgesic agent
CPT/HCPCS: 36415; 70450; 70551; 80048; 80053; 81001; 82330; 82962; 83036; 83690; 83735; 85025; 87070; 87086; 96361; 96374; 96375; 99285; J0610; J0696; J1650; J1815; J2405; J3490; J7030

== ENCOUNTER → 2019-12-25 | Outpatient (CLI) | payer MEDICARE, MEDICAID ==
--- NOTE | 2019-12-25 10:49 | WOMENS IMAGING REPORT ---
EXAM DESCRIPTION: BONE DENSITY HIP/SPINE IMAGES COMPLETED DATE/TIME: 12/25/2019 9:23 am REASON FOR STUDY: M81.0 AGE-RELATED OSTEOPOROSIS W/O CURRENT PATHOLOGICAL FRACTURE M81.0 AGE-RELATE D OSTEOPOROSIS W/O CURRENT PATHOLOGICAL FRAC N95.9 UNSPECIFIED MENOPAUSAL AND PERIMENOPAUSAL DISORDE R COMPARISON: 06/04/2017 TECHNIQUE: Dual-Energy X-ray Absorptiometry (DEXA) of the AP Spine and Hip. LIMITATIONS: None. FINDINGS: LUMBAR SPINE: The bone mineral density (BMD) measured from L1-L4 in the AP projection correlates with a T-score of 0.4, which is normal as defined by the World Health Organization. BMD Change vs Baseline: -3.3% HIP: The bone mineral density (BMD) measured in the left hip correlates with a T-score of -0.4, which is n ormal as defined by the World Health Organization. BMD Change vs Baseline: -10.9% 10 year Fracture Risk Assessment: Major Osteoporotic Fracture: Not available. Hip Fracture: Not available. IMPRESSION: 1. LUMBAR SPINE WHO CLASSIFICATION: NORMAL. 2. HIP WHO CLASSIFICATION: NORMAL. OVERALL ASSESSMENT: WHO CLASSIFICATION: NORMAL. COMMENT: The World Health Organization defines low BMD as follows: T-score: Normal: At or above -1.0 Osteopenia: Between -1.0 and -2.5 Osteoporosis: At or below -2.5 without fractures Established osteoporosis: At or below -2.5 with fractures In general, you may wish to consider: Diagnosis Treatment Follow-up DEXA Normal BMD Prevention 2-3 years Osteopenia Prevention/Therapy 1-2 years Osteoporosis Therapy Yearly TECHNICAL DOCUMENTATION: JOB ID: [id number] [employer]- All Rights Reserved Reading location - IP/workstation name: [email or web address]
== END ==
LOC: WI 08:22
PROVIDERS: ATTEND Internal Medicine Hematology & Oncology
DX: M81.0 Age-related osteoporosis without current pathological fracture (principal); N95.9 Unspecified menopausal and perimenopausal disorder
CPT/HCPCS: 77080

== ENCOUNTER → 2020-03-29 | Outpatient (CLI) | payer MEDICARE, MEDICAID ==
--- NOTE | 2020-03-29 11:28 | WOMENS IMAGING REPORT ---
EXAM DESCRIPTION: 3D SCREENING MAMMO BILAT IMAGES COMPLETED DATE/TIME: 03/29/2020 10:26 am REASON FOR STUDY: Z12.31 ENCNTR SCREEN MAMMOGRAM FOR MALIGNANT NEOPLASM OF BREAST Z12.31 ENCNTR SCR EEN MAMMOGRAM FOR MALIGNANT NEOPLASM OF MALLORY COMPARISON: 2016 and subsequent. EXAM PARAMETERS: Standard craniocaudal and mediolateral oblique views of each breast recorded using digital acquisition and breast tomosynthesis. Read with the assistance of CAD. .[facility] - [employer] Version 9.2 LIMITATIONS: None. FINDINGS: Findings present which are benign by mammographic criteria. No suspicious masses, calcific ations or architectural distortion. Pertinent benign findings: Stable post treatment changes, slight postoperative distortion focally at the operative site. Benign mammographic findings may include one or more of the following: Smooth masses, popcorn/rim/coa rse calcifications, asymmetries, post-procedure changes, and lesions with long-standing stability. IMPRESSION: BENIGN MAMMOGRAPHIC FINDINGS. BIRADS 2 BREAST DENSITY: b. There are scattered areas of fibroglandular density. BIRAD: ASSESSMENT: 2 BENIGN FINDING(S) RECOMMENDATION: ROUTINE SCREENING COMMENT: The patient has been notified of the results by letter per MQSA requirements. Additional no tification policies are in place for contacting patient with suspicious or incomplete findings. Quality ID #225: The [employer] recommends an annual screening mammogram for women aged 40 years or over. This facility utilizes a reminder system to ensure that all patients receive reminder letters, and/or direct phone calls for appointments. This includes reminders for routine scr eening mammograms, diagnostic mammograms, or other Breast Imaging Interventions when appropriate. Th is patient will be placed in the appropriate reminder system. TECHNICAL DOCUMENTATION: FINDING NUMBER: (1) ASSESSMENT: (1) JOB ID: [id number] 2010 [employer]- All Rights Reserved Reading location - IP/workstation name: [email or web address]
== END ==
LOC: WI 09:55
PROVIDERS: ATTEND Internal Medicine Hematology & Oncology
DX: Z12.31 Encounter for screening mammogram for malignant neoplasm of breast (principal)
CPT/HCPCS: 77063; 77067

== ENCOUNTER → 2020-05-19 | Outpatient (CLI) | payer MEDICARE, MEDICAID ==
--- NOTE | 2020-05-19 13:51 | RADIOLOGY REPORT (SQ) ---
EXAM DESCRIPTION: MRI LUMBAR SPINE WITHOUT IMAGES COMPLETED DATE/TIME: 05/19/2020 12:34 pm REASON FOR STUDY: (M54.30)SCIATICA, UNSPECIFIED SIDE M54.30 SCIATICA, UNSPECIFIED SIDE COMPARISON: None. TECHNIQUE: Sagittal and Axial imaging includes T1, T2, STIR and gradient echo sequences. Coronal T2/ HASTE imaging. LIMITATIONS: None. FINDINGS: VISUALIZED UPPER ABDOMEN: Limited evaluation. No acute or suspicious findings suggested. SEGMENTATION: No transitional anatomy. The lowest well-developed disc space is labeled L5-S1. ALIGNMENT: Anatomic. VERTEBRAE: Intact. BONE MARROW: Normal. No marrow replacement or reactive changes. DISC SIGNAL: Desiccation multiple levels. POSTERIOR ELEMENTS: Generally intact. No pars defect evident. HARDWARE: None in the spine. CORD AND CONUS: Normal in size and signal intensity. Conus at the appropriate level. SOFT TISSUES: No aortic aneurysm seen. No bulky retroperitoneal adenopathy or mass. No paraspinal mas s or fluid. L1-L2: No significant spinal stenosis or exit foraminal stenosis. L2-L3: No significant spinal stenosis or exit foraminal stenosis. L3-L4: Mild spinal stenosis due to disc bulge and facet arthropathy. L4-L5: Mild spinal stenosis due to disc bulge and facet arthropathy. L5-S1: Disc bulge and facet arthropathy. No significant stenosis. LOWER THORACIC: Incompletely imaged. No stenosis seen. SACRUM: Visualized upper sacrum intact. OTHER: No other significant findings. IMPRESSION: Spondylosis and facet arthropathy. Mild spinal stenosis L3-4 and L4-5. TECHNICAL DOCUMENTATION: JOB ID: [id number] [employer]- All Rights Reserved Reading location - IP/workstation name: [email or web address]
== END ==
LOC: RAD 11:50
PROVIDERS: ATTEND Physician Assistant
DX: M54.30 Sciatica, unspecified side (principal); M47.817 Spondylosis without myelopathy or radiculopathy, lumbosacral region; M48.061 Spinal stenosis, lumbar region without neurogenic claudication
CPT/HCPCS: 72148

== ENCOUNTER → 2020-05-27 | Outpatient (CLI) | payer MEDICARE, MEDICAID ==
[2020-05-27 10:45] LABS: ABSOLUTE BASOPHILS # (AUTO) 0.1 10^3/uL (0.0-0.2); ABSOLUTE LYMPHOCYTES (AUTO) 1.6 10^3/uL (0.5-4.7); ABSOLUTE MONOCYTES (AUTO) 0.5 10^3/uL (0.1-1.4); ABSOLUTE NEUT (AUTO) 11.5 10^3/uL (1.7-8.2); BASOPHILS % (AUTO) 0.4 % (0-2); HEMATOCRIT 36.4 % (36.0-47.0); LYMPHOCYTES % (AUTO) 11.9 % (13-45); MEAN CORPUSCULAR HEMOGLOBIN 29.4 pg (27.0-33.4); MEAN CORPUSCULAR HGB CONC 32.8 g/dL (32.0-36.0); MEAN CORPUSCULAR VOLUME 90 fl (80-97); MONOCYTES % (AUTO) 3.7 % (3-13); PLATELET COUNT 300 10^3/uL (150-450); RED BLOOD COUNT 4.07 10^6/uL (3.72-5.28); RED CELL DISTRIBUTION WIDTH 14.4 % (11.5-14.0); TOTAL CELLS COUNTED % (AUTO) 100 %; WHITE BLOOD COUNT 13.7 10^3/uL (4.0-10.5)
[2020-05-27 11:13] LABS: ALBUMIN 3.7 g/dL (3.5-5.0); ALKALINE PHOSPHATASE 187 U/L (38-126); ANION GAP 6 (5-19); ASPARTATE AMINO TRANSFERASE 23 U/L (14-36); BILIRUBIN,DIRECT 0.2 mg/dL (0.0-0.4); BILIRUBIN,TOTAL 0.3 mg/dL (0.2-1.3); BLOOD UREA NITROGEN 33 mg/dL (7-20); CALCIUM 9.9 mg/dL (8.4-10.2); CARBON DIOXIDE 28 mmol/L (22-30); CHLORIDE 102 mmol/L (98-107); GLUCOSE 184 mg/dL (75-110); POTASSIUM 5.8 mmol/L (3.6-5.0); TOTAL PROTEIN 6.8 g/dL (6.3-8.2)
[2020-05-27 11:14] LABS: C-REACTIVE PROTEIN < 5.0 mg/L (<10.0)
--- NOTE | 2020-05-27 12:18 | RADIOLOGY REPORT (SQ) ---
EXAM DESCRIPTION: CHEST 2 VIEWS IMAGES COMPLETED DATE/TIME: 05/27/2020 10:43 am REASON FOR STUDY: (R06.02)SHORTNESS OF BREATH COMPARISON: None. EXAM PARAMETERS: NUMBER OF VIEWS: two views TECHNIQUE: Digital Frontal and Lateral radiographic views of the chest acquired. RADIATION DOSE: NA LIMITATIONS: none FINDINGS: LUNGS AND PLEURA: Cannot exclude a couple of areas of ill-defined infiltrate in the right upper lobe. MEDIASTINUM AND HILAR STRUCTURES: No masses or contour abnormalities. HEART AND VASCULAR STRUCTURES: Heart normal size. No evidence for failure. BONES: No acute findings. HARDWARE: None in the chest. OTHER: No other significant finding. IMPRESSION: Cannot exclude limited right upper lobe pneumonia. TECHNICAL DOCUMENTATION: JOB ID: [id number] 2010 [employer]- All Rights Reserved Reading location - IP/workstation name: [email or web address]
--- OUTSIDE RECORDS SUMMARY | 2020-05-27 14:31 | XMS REPORT ---
:1950 Author Organization [facility] Address [facility] [address] [place] [id number] Care Team Providers Name Role Phone Paul VOGT Attending Clinician Unavailable Mookie Dawkins Attending Clinician Unavailable Ector Attending Clinician Unavailable Anatoliy Attending Clinician Unavailable Annelise Zuniga Unavailable Allergies, Adverse Reactions, Alerts Allergy Name Allergy Status Severity Reaction(s) Onset Inactive Treat ing Comments Type Date Date Clinician IODINE-IODIN Allergy Active E CONTAINING 02-02 00:00: 00 Aspirin Allergy Active 02-01 00:00: 00 Aspirin Allergy to Active Drug (Finding) Iodine [id number] Active Medications Ordered Filled Start Stop Current Ordering Indication Dosage Frequency Signature Comments Components Medication Medication Date Date Medication? Clinician (SIG) Name Name oxycodone 5 2020-2020- No 1 oxycodone mg oral 1-06 01-06 5 mg oral tablet 00:00: 00:00 tablet 00 :00 oxycodone 5 2019- 2020- No 1 oxycodone mg oral 2-08 12-08 5 mg oral tablet 00:00: 00:00 tablet 00 :00 oxycodone 5 2019- 2020- No 1 oxycodone mg oral 1-10 12-10 5 mg oral tablet 00:00: 00:00 tablet 00 :00 oxycodone 5 2019-0 2020- No 1 oxycodone mg oral 9-16 09-16 5 mg oral tablet 00:00: 00:00 tablet 00 :00 oxycodone 5 2019-0 2020- No 1 oxycodone mg oral 8-20 08-20 5 mg oral tablet 00:00: 00:00 tablet 00 :00 Movantik 25 2019-0 2020- No 1 Movantik mg oral 8-11 12-09 25 mg oral tablet 00:00: 00:00 tablet 00 :00 oxycodone 5 2019- 2020- No 1 oxycodone mg oral 7-14 07-14 5 mg oral tablet 00:00: 00:00 tablet 00 :00 oxycodone 5 2019- No 1 oxycodone mg oral 6-09 06-09 5 mg oral tablet 00:00: 00:00 tablet 00 :00 oxycodone 5 2019- No 1 oxycodone mg oral 5-13 05-13 5 mg oral tablet 00:00: 00:00 tablet 00 :00 oxycodone 5 2019- No 1 oxycodone mg oral 3-09 03-09 5 mg oral tablet 00:00: 00:00 tablet 00 :00 oxycodone 5 2019- No 1 oxycodone mg oral 1-31 01-31 5 mg oral tablet 00:00: 00:00 tablet 00 :00 Voltaren 1 2018- 2020- No 1 Voltaren 1 PERCENT 1-14 11-08 PERCENT topical gel 00:00: 00:00 topical 00 :00 gel oxycodone 5 2018- No 1 oxycodone mg oral 6-17 06-17 5 mg oral tablet 00:00: 00:00 tablet 00 :00 Movantik 25 2018-0 2019- No 1 Movantik mg oral 4-02 03-27 25 mg oral tablet 00:00: 00:00 tablet 00 :00 oxycodone 5 2018- 2019- No 1 oxycodone mg oral 4-02 05-02 5 mg oral tablet 00:00: 00:00 tablet 00 :00 oxycodone 5 2018-2018- No 1 oxycodone mg oral 3-07 03-07 5 mg oral tablet 00:00: 00:00 tablet 00 :00 oxycodone 5 2018- 2019- No 1 oxycodone mg oral 2-06 02-06 5 mg oral tablet 00:00: 00:00 tablet 00 :00 oxycodone 5 2018-2018- No 1 oxycodone mg oral 1-09 01-09 5 mg oral tablet 00:00: 00:00 tablet 00 :00 oxycodone 5 2017-05 2018- No 1 oxycodone mg oral 1-28 11-28 5 mg oral tablet 00:00: 00:00 tablet 00 :00 naloxone 4 2016-05 2017- No 1 naloxone 4 mg/actuatio 1-30 12-01 mg/actuati n nasal 00:00: 00:00 on nasal spray,non-a 00 :00 spray,non- erosol aerosol naloxone 4 2016-05 2017- No 1 naloxone 4 mg/actuatio 1-30 12-01 mg/actuati n nasal 00:00: 00:00 on nasal spray,non-a 00 :00 spray,non- erosol aerosol Aromasin 2013-05- No 1 06-01 00:00: 15:18 00 :44 Allergy Yes 1 [place] 24 Hour Atorvastati Yes 1 n Calcium Carvedilol Yes 1 Cephalexin No 1 Cholecalcif No 1 ramón Colace Yes 2 Esomeprazol Yes 1 e Magnesium Ezetimibe Yes 1 Gabapentin Yes 1 Glimepiride Yes 1 hemp oil Yes 1 drops Iron Yes 65mg Levocetiriz Yes 1 ine Dihydrochlo ride Losartan Yes 1 Potassium Meclizine No 1 HCl metFORMIN Yes 1 HCl Movantik Yes 1 Narcan Yes 4mg Nitrostat Yes 1 Norvasc Yes 1 OxyCODONE Yes 1 HCl Savella Yes 1 Albuterol Yes 1 Sulfate HFA Breo Yes 1 Ellipta Cholecalcif Yes 1 ramón Magnesium Yes 1 Cephalexin 2020- No 1 05-13 14:03 :07 Meclizine 2020- No 1 HCl 05-13 14:03 :14 Diclofenac 2019- No 1 Sodium 01-27 14:06 :39 Welchol 2019- No 1 01-27 14:06 :59 Xyzal 2019- No 1 01-27 14:07 :07 Meclizine 2019- No HCl 11-09 09:23 :38 Feosol 2019- No 1 10-07 14:18 :20 Losartan 2019- No 1 Potassium 10-07 14:18 :32 MetFORMIN 2019- No 1 HCl 10-07 14:18 :04 Movantik 2019- No 1 10-07 14:18 :12 Protonix 2019- No 1 - 14:18 :41 Savella 2019- No 1 - 14:18 :47 Simvastatin 2019- No 1 10-07 14:18 :54 vitamin d 2018- No [id number] 08-19 11:02 :17 Diovan 2019- No 1 05-22 12:02 :35 Effient 2017- No 1 06-08 11:48 :18 NexIUM 2017- No 1 06-08 11:48 :24 Ambien 2015- No 1 03-13 09:25 :23 Flexeril 2015- No 1 03-13 09:26 :43 Flonase 2015- No 2 03-13 09:26 :49 Hydrocodone 2015- No 1 -Acetaminop 03-13 hen 09:27 :06 Protonix 2015- No 1 03-13 09:27 :38 Savella 2015- No 1 03-13 09:27 :49 TraMADol 2015- No 1 HCl 03-13 09:27 :59 Cholecalcif 2013- No ramón 04-01 15:03 :58 Lasix 2013- No 04-01 15:03 :18 Pioglitazon 2013- No e HCl 04-01 15:03 :40 Cholecalcif 2013- No ramón 04-01 15:03 :58 Problems Condition Condition Condition Status Onset Resolution Last Treatin g Comments Name Details Category Date Date Treatment Clinician Date Encounter Complaint Active Efrain, for 7-14 [place] screening 00:00: Annelise for other 00 disorder Benign Benign Diagnosis active paroxysmal paroxysmal 7-06 positional positional 00:00: vertigo vertigo 00 Osteoarthri Complaint Active Efrain, tis of left 9-10 [place] shoulder 00:00: Annelise 00 History of Complaint Active Efrain, lymphoma 5-16 [place] 00:00: Annelise 00 Lymphoma Complaint Active 2017-05 Efrain, 1-28 [place] 00:00: Annelise 00 History of Complaint Active 2017-05 Efrain, hip surgery 0-25 [place]ia 00:00: Annelise 00 Mucosa-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 Facet Complaint Active 2016-05 Efrain, arthritis 1-30 [place]ia of lumbar 00:00: Annelise region 00 Chronic Complaint Active Efrain, pain 9-29 [place]ia syndrome 00:00: Annelise 00 Sacroiliiti Complaint Active Efrain, s 9-29 [place] 00:00: Annelise 00 Degenerativ Complaint Active Efrain, e joint 02-02 [place]ia disease of 00:00: Annelise right hip 00 Lumbar Complaint Active Efrain, spondylosis 02-02 [place]ia 00:00: Annelise 00 Depression Complaint Active Efrain, screening 02-02 [place]ia 00:00: Annelise 00 Chronic Complaint Active Efrain, prescriptio 02-02 [place] n opiate 00:00: Annelise use 00 Stroke Complaint Active Efrain, 02-01 [place]ia 00:00: Annelise 00 Needs Needs Diagnosis active 2013-05 influenza influenza 06-01 immunizatio immunizatio 00:00: n n 00 Primary Primary Diagnosis active 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 Procedures Procedure Date / Time Performed Performing Clinician Devic e OFFICE/OUTPATIENT VISIT, EST 2020-05-13 10:15:00 Office/outpatient Visit Est 2020-05-12 00:00:00 Acp Discuss-no Dscnmkr Docd 2020-05-12 00:00:00 Pt Falls Assess-docd Le2020-05-12 00:00:00 Elig Clin Attsts Doc M Rec Obtd 2020-05-12 00:00:00 Upd/rev Pt Meds Pain Assess Doc Pos Using Standard 2020-05-12 00:00:00 Tool F/u Plan Bmi Doc Above Normal Andi & F/u 2020-05-12 00:00:00 Plan Documented Patient screened for tobacco use 2020-05-12 00:00:00 and identified as OFFICE/OUTPATIENT VISIT, EST 2020-04-15 09:05:00 Office/outpatient Visit Est 2020-04-13 00:00:00 Acp Discuss-no Dscnmkr Docd 2020-04-13 00:00:00 Pt Falls Assess-docd Le2020-04-13 00:00:00 Elig Clin Attsts Doc M Rec Obtd 2020-04-13 00:00:00 Upd/rev Pt Meds Patient screened for tobacco use 2020-04-13 00:00:00 and identified as Bmi Doc Above Normal Andi & F/u 2020-04-13 00:00:00 Plan Documented OFFICE/OUTPATIENT VISIT, EST 2020-03-25 08:45:00 Office/outpatient Visit Est 2020-03-16 00:00:00 Acp Discuss-no Dscnmkr Docd 2020-03-16 00:00:00 Pt Falls Assess-docd Le/2020-03-16 00:00:00 Elig Clin Attsts Doc M Rec Obtd 2020-03-16 00:00:00 Upd/rev Pt Meds Patient screened for tobacco use 2020-03-16 00:00:00 and identified as Influenza Immunization Not Admin 2020-03-16 00:00:00 Rsn Doc Clin Bmi Doc Above Normal Andi & F/u 2020-03-16 00:00:00 Plan Documented OFFICE/OUTPATIENT VISIT, EST 2020-03-11 15:05:00 OFFICE/OUTPATIENT VISIT, EST 2020-02-26 13:35:00 Office/outpatient Visit Est 2020-01-22 00:00:00 Acp Discuss-no Dscnmkr Docd 2020-01-22 00:00:00 Pt Falls Assess-docd Le/2020-01-22 00:00:00 Elig Clin Attsts Doc M Rec Obtd 2020-01-22 00:00:00 Upd/rev Pt Meds Patient screened for tobacco use 2020-01-22 00:00:00 and identified as Bmi Doc Above Normal Andi & F/u 2020-01-22 00:00:00 Plan Documented Office/outpatient Visit Est 2019-12-26 00:00:00 Acp Discuss-no Dscnmkr Docd 2019-12-26 00:00:00 Fall Risk Assessment Docd 2019-12-26 00:00:00 Ptfalls Assess-docd Ge2>/yr 2019-12-26 00:00:00 Elig Clin Attsts Doc M Rec Obtd 2019-12-26 00:00:00 Upd/rev Pt Meds Patient screened for tobacco use 2019-12-26 00:00:00 and identified as Bmi Doc Above Normal Andi & F/u 2019-12-26 00:00:00 Plan Documented PHQ-9 Depression Screening 2019-11-18 00:00:00 ([place]an) PHQ-9 Depression Screening 2019-11-18 00:00:00 ([place]) Office/outpatient Visit Est 2019-11-18 00:00:00 Acp Discuss-no Dscnmkr Docd 2019-11-18 00:00:00 Pt Falls Assess-docd Le/2019-11-18 00:00:00 Elig Clin Attsts Doc M Rec Obtd 2019-11-18 00:00:00 Upd/rev Pt Meds Patient screened for tobacco use 2019-11-18 00:00:00 and identified as Bmi Doc Above Normal Andi & F/u 2019-11-18 00:00:00 Plan Documented Annual Depression Screening 15 2019-11-18 00:00:00 Minutes Individual psychotherapy for 20 2019-10-14 00:00:00 minutes Education about smoking cessation 2019-10-14 00:00:00 for greater than 10 minutes Office/outpatient Visit Est 2019-10-14 00:00:00 Acp Discuss-no Dscnmkr Docd 2019-10-14 00:00:00 Fall Risk Assessment Docd 2019-10-14 00:00:00 Ptfalls Assess-docd Ge2>/yr 2019-10-14 00:00:00 Documentation of current 2019-10-14 00:00:00 medications Elig Clin Attsts Doc M Rec Obtd 2019-10-14 00:00:00 Upd/rev Pt Meds Pain Assess Doc Pos Using Standard 2019-10-14 00:00:00 Tool F/u Plan Bmi Doc Above Normal Andi & F/u 2019-10-14 00:00:00 Plan Documented Patient screened for tobacco use 2019-10-14 00:00:00 and identified as Office/outpatient Visit Est 2019-09-17 00:00:00 Acp Discuss-no Dscnmkr Docd 2019-09-17 00:00:00 Fall Risk Assessment Docd 2019-09-17 00:00:00 Ptfalls Assess-docd Ge2>/yr 2019-09-17 00:00:00 Elig Clin Attsts Doc M Rec Obtd 2019-09-17 00:00:00 Upd/rev Pt Meds Pain Assess Doc Pos Using Standard 2019-09-17 00:00:00 Tool F/u Plan Bmi Doc Above Normal Andi & F/u 2019-09-17 00:00:00 Plan Documented Patient screened for tobacco use 2019-09-17 00:00:00 and identified as OFFICE/OUTPATIENT VISIT, EST 2019-09-10 08:00:00 Office/outpatient Visit Est 2019-07-14 00:00:00 Acp Discuss-no Dscnmkr Docd 2019-07-14 00:00:00 Pt Falls Assess-docd 2019-07-14 00:00:00 Elig Clin Attsts Doc M Rec Obtd 2019-07-14 00:00:00 Upd/rev Pt Meds Pain Assess Doc Pos Using Standard 2019-07-14 00:00:00 Tool F/u Plan Bmi Doc Above Normal Andi & F/u 2019-07-14 00:00:00 Plan Documented Patient screened for tobacco use 2019-07-14 00:00:00 and identified as Office/outpatient Visit Est 2019-06-06 00:00:00 Office/outpatient Visit Est 2018-10-21 00:00:00 Acp Discuss-no Dscnmkr Docd 2018-10-21 00:00:00 Pt Falls Assess-docd 2018-10-21 00:00:00 Elig Clin Attsts Doc M Rec Obtd 2018-10-21 00:00:00 Upd/rev Pt Meds Pain Assess Doc Pos Using Standard 2018-10-21 00:00:00 Tool F/u Plan Bmi Doc Above Normal Andi & F/u 2018-10-21 00:00:00 Plan Documented Patient screened for tobacco use 2018-10-21 00:00:00 and identified as Office/outpatient Visit Est 2018-09-19 00:00:00 Acp Discuss-no Dscnmkr Docd 2018-09-19 00:00:00 Pt Falls Assess-docd 2018-09-19 00:00:00 Elig Clin Attsts Doc M Rec Obtd 2018-09-19 00:00:00 Upd/rev Pt Meds Pain Assess Doc Pos Using Standard 2018-09-19 00:00:00 Tool F/u Plan Bmi Doc Above Normal Andi & F/u 2018-09-19 00:00:00 Plan Documented Patient screened for tobacco use 2018-09-19 00:00:00 and identified as Office/outpatient Visit Est 2018-08-06 00:00:00 Acp Discuss-no Dscnmkr Docd 2018-08-06 00:00:00 Pt Falls Assess-docd 2018-08-06 00:00:00 Elig Clin Attsts Doc M Rec Obtd 2018-08-06 00:00:00 Upd/rev Pt Meds Pain Assess Doc Pos Using Standard 2018-08-06 00:00:00 Tool F/u Plan Bmi Doc Above Normal Andi & F/u 2018-08-06 00:00:00 Plan Documented Patient screened for tobacco use 2018-08-06 00:00:00 and identified as EGD 2018-08-05 00:00:00 Drug Test Prsmv Chem Anlyzr 2018-07-11 00:00:00 Office/outpatient Visit Est 2018-07-11 00:00:00 Acp Discuss-no Dscnmkr Docd 2018-07-11 00:00:00 Pt Falls Assess-docd 2018-07-11 00:00:00 Elig Clin Attsts Doc M Rec Obtd 2018-07-11 00:00:00 Upd/rev Pt Meds Pain Assess Doc Pos Using Standard 2018-07-11 00:00:00 Tool F/u Plan Influenza Immunization 2018-07-11 00:00:00 Admin/previously Received Bmi Doc Above Normal Andi & F/u 2018-07-11 00:00:00 Plan Documented Patient screened for tobacco use 2018-07-11 00:00:00 and identified as Office/outpatient Visit Est 2018-06-12 00:00:00 Acp Discuss/dscn Mkr Docd 2018-06-12 00:00:00 Pt Falls Assess-docd 2018-06-12 00:00:00 Elig Clin Attsts Doc M Rec Obtd 2018-06-12 00:00:00 Upd/rev Pt Meds Pain Assess Doc Pos Using Standard 2018-06-12 00:00:00 Tool F/u Plan Influenza Immunization 2018-06-12 00:00:00 Admin/previously Received Bmi Doc Above Normal Andi & F/u 2018-06-12 00:00:00 Plan Documented Patient screened for tobacco use 2018-06-12 00:00:00 and identified as Office/outpatient Visit Est 2018-05-15 00:00:00 Acp Discuss-no Dscnmkr Docd 2018-05-15 00:00:00 Pt Falls Assess-docd Le2018-05-15 00:00:00 Elig Clin Attsts Doc M Rec Obtd 2018-05-15 00:00:00 Upd/rev Pt Meds Pain Assess Doc Pos Using Standard 2018-05-15 00:00:00 Tool F/u Plan Influenza Immunization 2018-05-15 00:00:00 Admin/previously Received Bmi Doc Above Normal Andi & F/u 2018-05-15 00:00:00 Plan Documented Patient screened for tobacco use 2018-05-15 00:00:00 and identified as Office/outpatient Visit Est 2018-04-03 00:00:00 Acp Discuss-no Dscnmkr Docd 2018-04-03 00:00:00 Pt Falls Assess-docd Le1/yr 2018-04-03 00:00:00 Drug Test Prsmv Chem Anlyzr 2018-04-03 00:00:00 Elig Clin Attsts Doc M Rec Obtd 2018-04-03 00:00:00 Upd/rev Pt Meds Pain Assess Doc Pos Using Standard 2018-04-03 00:00:00 Tool F/u Plan Influenza Immunization Not Admin 2018-04-03 00:00:00 Rsn Doc Clin Bmi Doc Above Normal Andi & F/u 2018-04-03 00:00:00 Plan Documented Patient screened for tobacco use 2018-04-03 00:00:00 and identified as POSTOP FOLLOW-UP VISIT 2017-12-11 15:35:00 POSTOP FOLLOW-UP VISIT 2017-10-24 10:35:00 Right hip replacement 2017-09-04 00:00:00 Bone density 2017-05-07 00:00:00 cholecystectomy Carpal tunnel hysterectomy C spine disc surgery colonoscopy Gallbladder Results Test Description Test Time Test Comments Text Results Atomic Results Result Comments SARS-CoV-2 RNA Resp Ql ANA+probe 2020-05-25 00:00:00 Test Item Value Reference Range Comments SARS-CoV-2 RNA Resp Ql ANA+probe [facility] ID: (test code = 50208-0) [id number] 14:02:00 Test Item Value Reference Range Comments Creatinine (test code = Creatinine) 0.9900 mg/dL 0.5700-1.000 0 Cr Clearance (Est) (test code = Cr 73.6100 75.0000-115.0 000 Clearance (Est)) Glucose (test code = Glucose) 255.0000 mg/dL 65.0000-99.0000 BUN (test code = BUN) 16.0000 mg/dL 8.0000-27.0000 eGFR Tlh-Qgarvqt-Zeynezlo (test code = 58.0000 eGFR Zqg-Vzzjixx-Krgzpvpm) eGFR -Zambian (test code = eGFR 67.0000 -Zambian) BUN/Creat Ratio (test code = BUN/Creat 16.0000 12.0000-2 8.0000 Ratio) Sodium (test code = Sodium) 142.0000 mmol/L 134.0000-144.0000 Potassium (test code = Potassium) 4.8000 mmol/L 3.5000-5.2000 Chloride (test code = Chloride) 102.0000 mmol/L 96.0000-106.0000 CO2 (test code = CO2) 25.0000 mmol/L 20.0000-29.0000 Calcium (test code = Calcium) 9.6000 mg/dL 8.7000-10.3000 Protein, Total (test code = Protein, 6.6000 g/dL 6.0000-8.50 00 Total) Albumin (test code = Albumin) 3.7000 g/dL 3.8000-4.8000 Globulin (test code = Globulin) 2.9000 g/dL 1.5000-4.5000 A/G Ratio (test code = A/G Ratio) 1.3000 1.2000-2.2000 Bilirubin, Total (test code = Bilirubin, 0.5000 mg/dL 0.0000- 1.2000 Total) Alkaline Phosphatase (test code = Alkaline 213.0000 39.00 00-117.0000 Phosphatase) AST (SGOT) (test code = AST (SGOT)) 32.0000 0.0000-40.00 00 ALT (SGPT) (test code = ALT (SGPT)) 38.0000 0.0000-32.00 00 Vitamin D (25-Hydroxy) (test code = 54.5000 ng/mL 30.0000-100. 0000 Vitamin D (25-Hydroxy)) LDH, Total (test code = LDH, Total) 173.0000 119.0000-226 .0000 [id number] 14:32:00 Test Item Value Reference Range Comments WBC (test code = WBC) 6.2000 4.0000-10.0000 Lymphocytes % (test code = Lymphocytes %) 20.9000 % 22.400 0-43.6000 MID% (test code = MID%) 5.6000 % 1.1999-11.1999 Neutrophils % (test code = Neutrophils %) 73.5000 % 48.900 0-69.9000 Lymphocytes (test code = Lymphocytes) 1.3000 1.2000-3.2 000 MID (test code = MID) 0.4000 0.1000-1.1000 Neutrophils (test code = Neutrophils) 4.5000 1.5000-6.7 000 RBC (test code = RBC) 4.0100 3.7000-4.9000 HGB (test code = HGB) 12.1000 g/dL 11.2000-18.0000 HCT (test code = HCT) 36.7000 % 34.0000-44.0000 MCV (test code = MCV) 91.6000 fL 80.0000-94.0000 MCH (test code = MCH) 30.3000 pg 27.0000-34.0000 MCHC (test code = MCHC) 33.1000 g/dL 31.5000-36.0000 RDW (test code = RDW) 14.4000 11.0000-18.0000 PLT (test code = PLT) 281.0000 140.0000-440.0000 MPV (test code = MPV) 8.3000 fL 6.8000-10.6000 [id number] 11:41:00 Test Item Value Reference Range Comments WBC (test code = WBC) 3.9000 4.0000-10.0000 Lymphocytes % (test code = Lymphocytes %) 25.1000 % 22.400 0-43.6000 MID% (test code = MID%) 7.9000 % 1.2000-11.2000 Neutrophils % (test code = Neutrophils %) 67.0000 % 48.900 0-69.9000 Lymphocytes (test code = Lymphocytes) 0.9000 1.2000-3.2 000 MID (test code = MID) 0.4000 0.1000-1.1000 Neutrophils (test code = Neutrophils) 2.6000 1.5000-6.7 000 RBC (test code = RBC) 4.1200 3.7000-4.9000 HGB (test code = HGB) 11.5000 g/dL 11.2000-18.0000 HCT (test code = HCT) 37.3000 % 34.0000-44.0000 MCV (test code = MCV) 90.5000 fL 80.0000-94.0000 MCH (test code = MCH) 28.1000 pg 27.0000-34.0000 MCHC (test code = MCHC) 31.0000 g/dL 31.5000-36.0000 RDW (test code = RDW) 14.7000 11.0000-18.0000 PLT (test code = PLT) 191.0000 140.0000-440.0000 MPV (test code = MPV) 8.2000 fL 6.8000-10.6000 [id number] 11:41:00 Test Item Value Reference Range Comments Creatinine (test code = Creatinine) 0.9000 mg/dL 0.5000-1.200 0 Cr Clearance (Est) (test code = Cr 82.4200 75.0000-115.0 000 Clearance (Est)) Glucose (test code = Glucose) 174.0000 mg/dL 70.0000-118.0000 BUN (test code = BUN) 11.0000 mg/dL 7.0000-22.0000 Sodium (test code = Sodium) 137.0000 mmol/L 128.0000-145.0000 Potassium (test code = Potassium) 4.1000 mmol/L 3.6000-5.1000 Chloride (test code = Chloride) 104.0000 mmol/L 96.0000-108.0000 CO2 (test code = CO2) 30.0000 mmol/L 18.0000-33.0000 Calcium (test code = Calcium) 8.7000 mg/dL 8.0000-10.3000 Alkaline Phosphatase (test code = Alkaline 96.0000 42.00 00-141.0000 Phosphatase) ALT (SGPT) (test code = ALT (SGPT)) 14.0000 10.0000-47.0 000 AST (SGOT) (test code = AST (SGOT)) 15.0000 11.0000-37.0 000 Bilirubin, Total (test code = Bilirubin, 0.4000 mg/dL 0.0000- 1.6000 Total) Albumin (test code = Albumin) 3.7000 g/dL 3.5000-5.5000 Protein, Total (test code = Protein, 6.8000 g/dL 6.4000-8.10 00 Total) eGFR -Zambian (test code = eGFR 75.0000 60.0000- 200.0000 -[place]ian) eGFR Hsc-Zeuigwu-Wkixaqtw (test code = 62.0000 60.0000-2 00.0000 eGFR Xmn-Wuixnyt-Bhcctqzo) [id number] 15:27:00 Test Item Value Reference Range Comments Creatinine (test code = Creatinine) 0.8000 mg/dL 0.5700-1.000 0 Cr Clearance (Est) (test code = Cr 90.1200 75.0000-115.0 000 Clearance (Est)) Glucose (test code = Glucose) 216.0000 mg/dL 65.0000-99.0000 BUN (test code = BUN) 10.0000 mg/dL 8.0000-27.0000 eGFR Plq-Swjzotu-Ejdysamn (test code = 76.0000 eGFR Htd-Naiddrc-Sopocfgx) eGFR -Zambian (test code = eGFR 88.0000 -[place]ian) BUN/Creat Ratio (test code = BUN/Creat 13.0000 12.0000-2 8.0000 Ratio) Sodium (test code = Sodium) 145.0000 mmol/L 134.0000-144.0000 Potassium (test code = Potassium) 5.0000 mmol/L 3.5000-5.2000 Chloride (test code = Chloride) 105.0000 mmol/L 96.0000-106.0000 CO2 (test code = CO2) 23.0000 mmol/L 20.0000-29.0000 Calcium (test code = Calcium) 9.7000 mg/dL 8.7000-10.3000 Protein, Total (test code = Protein, 6.9000 g/dL 6.0000-8.50 00 Total) Albumin (test code = Albumin) 4.1000 g/dL 3.6000-4.8000 Globulin (test code = Globulin) 2.8000 g/dL 1.5000-4.5000 A/G Ratio (test code = A/G Ratio) 1.5000 1.2000-2.2000 Bilirubin, Total (test code = Bilirubin, 0.2000 mg/dL 0.0000- 1.2000 Total) Alkaline Phosphatase (test code = Alkaline 115.0000 39.00 00-117.0000 Phosphatase) AST (SGOT) (test code = AST (SGOT)) 13.0000 0.0000-40.00 00 ALT (SGPT) (test code = ALT (SGPT)) 8.0000 0.0000-32.00 00 TSH (test code = TSH) 0.4420 0.4500-4.5000 LDH, Total (test code = LDH, Total) 181.0000 119.0000-226 .0000 [id number] 15:07:00 Test Item Value Reference Range Comments WBC (test code = WBC) 9.9000 4.0000-10.0000 Lymphocytes % (test code = Lymphocytes %) 22.6000 % 22.400 0-43.6000 MID% (test code = MID%) 6.8000 % 1.2000-11.2000 Neutrophils % (test code = Neutrophils %) 70.6000 % 48.900 0-69.9000 Lymphocytes (test code = Lymphocytes) 2.2000 1.2000-3.2 000 MID (test code = MID) 0.7000 0.1000-1.1000 Neutrophils (test code = Neutrophils) 7.0000 1.5000-6.7 000 RBC (test code = RBC) 4.1100 3.7000-4.9000 HGB (test code = HGB) 12.0000 g/dL 11.2000-18.0000 HCT (test code = HCT) 36.5000 % 34.0000-44.0000 MCV (test code = MCV) 88.7000 fL 80.0000-94.0000 MCH (test code = MCH) 29.1000 pg 27.0000-34.0000 MCHC (test code = MCHC) 32.8000 g/dL 31.5000-36.0000 RDW (test code = RDW) 14.5000 11.0000-18.0000 PLT (test code = PLT) 239.0000 140.0000-440.0000 MPV (test code = MPV) 9.2000 fL 6.8000-10.6000 [id number] 11:08:32 Test Item Value Reference Range Comments Glucose (test code = Glucose) 120.0000 mg/dL 60.0000-125.0000 BUN (test code = BUN) 11.0000 mg/dL 5.0000-26.0000 Creatinine (test code = Creatinine) 1.0800 mg/dL 0.5000-1.500 0 Cr Clearance (Est) (test code = Cr 69.1200 75.0000-115.0 000 Clearance (Est)) Sodium (test code = Sodium) 139.0000 mmol/L 135.0000-148.0000 Potassium (test code = Potassium) 4.9000 mmol/L 3.5000-5.5000 Chloride (test code = Chloride) 99.0000 mmol/L 96.0000-109.0000 CO2 (test code = CO2) 26.0000 mmol/L 21.0000-32.0000 Calcium (test code = Calcium) 9.5000 mg/dL 8.5000-10.6000 Protein, Total (test code = Protein, 7.0000 g/dL 6.0000-8.50 00 Total) Albumin (test code = Albumin) 3.6000 g/dL 3.6000-4.8000 Bilirubin, Total (test code = Bilirubin, 0.3000 mg/dL 0.1000- 1.2000 Total) Alkaline Phosphatase (test code = Alkaline 146.0000 55.00 00-165.0000 Phosphatase) AST (SGOT) (test code = AST (SGOT)) 19.0000 0.0000-45.00 00 ALT (SGPT) (test code = ALT (SGPT)) 11.0000 0.0000-50.00 00 [id number] 11:08:32 Test Item Value Reference Range Comments WBC (test code = WBC) 10.0000 4.0000-10.5000 HGB (test code = HGB) 10.4000 g/dL 11.5000-15.0000 HCT (test code = HCT) 33.3000 % 34.0000-44.0000 MCV (test code = MCV) 92.0000 fL 80.0000-98.0000 Platelet Count (test code = Platelet Count) 503.0000 140. 0000-415.0000 Neutrophils (Gran) (test code = Neutrophils 5.9000 1.80 00-7.8000 (Gran)) Lymphocytes (test code = Lymphocytes) 2.1000 0.7000-4.5 000 Vitamin D (25-Hydroxy)2016-09-26 14:25:00 Test Item Value Reference Range Comments Vitamin D (25-Hydroxy) (test code = Vitamin D 59.7000 ng/mL 30 .0000-100.0000 (25-Hydroxy)) [id number] 14:07:00 Test Item Value Reference Range Comments Creatinine (test code = Creatinine) 1.0000 mg/dL 0.5000-1.200 0 Cr Clearance (Est) (test code = Cr 74.0400 75.0000-115.0 000 Clearance (Est)) Glucose (test code = Glucose) 194.0000 mg/dL 70.0000-118.0000 BUN (test code = BUN) 12.0000 mg/dL 7.0000-22.0000 Sodium (test code = Sodium) 138.0000 mmol/L 128.0000-145.0000 Potassium (test code = Potassium) 5.1000 mmol/L 3.6000-5.1000 Chloride (test code = Chloride) 111.0000 mmol/L 96.0000-108.0000 CO2 (test code = CO2) 28.0000 mmol/L 18.0000-33.0000 Calcium (test code = Calcium) 9.9700 mg/dL 8.0000-10.3000 Alkaline Phosphatase (test code = Alkaline 104.0000 42.00 00-141.0000 Phosphatase) ALT (SGPT) (test code = ALT (SGPT)) 6.0000 10.0000-47.0 000 AST (SGOT) (test code = AST (SGOT)) 11.0000 11.0000-37.0 000 Bilirubin, Total (test code = Bilirubin, 0.4000 mg/dL 0.0000- 1.6000 Total) Albumin (test code = Albumin) 4.4000 g/dL 3.5000-5.5000 Protein, Total (test code = Protein, 7.4000 g/dL 6.4000-8.10 00 Total) [id number] 14:06:00 Test Item Value Reference Range Comments WBC (test code = WBC) 9.7000 4.0000-10.0000 Lymphocytes % (test code = Lymphocytes %) 22.9000 % 22.400 0-43.6000 MID% (test code = MID%) 5.7000 % 1.2000-11.2000 Neutrophils % (test code = Neutrophils %) 71.4000 % 48.900 0-69.9000 Lymphocytes (test code = Lymphocytes) 2.2000 1.2000-3.2 000 MID (test code = MID) 0.6000 0.1000-1.1000 Neutrophils (test code = Neutrophils) 6.9000 1.5000-6.7 000 RBC (test code = RBC) 4.5200 3.7000-4.9000 HGB (test code = HGB) 13.1000 g/dL 11.2000-18.0000 HCT (test code = HCT) 39.8000 % 34.0000-44.0000 MCV (test code = MCV) 88.1000 fL 80.0000-94.0000 MCH (test code = MCH) 29.0000 pg 27.0000-34.0000 MCHC (test code = MCHC) 32.9000 g/dL 31.5000-36.0000 RDW (test code = RDW) 14.4000 11.0000-18.0000 PLT (test code = PLT) 262.0000 140.0000-440.0000 MPV (test code = MPV) 8.4000 fL 6.8000-10.6000 [id number] 14:13:00 Test Item Value Reference Range Comments TSH (test code = TSH) 1.3600 0.4500-4.5000 T3 Uptake (test code = T3 Uptake) 26.0000 % 24.0000-39.000 0 T4 (test code = T4) 6.7000 4.5000-12.0000 FTI (test code = FTI) 1.7000 1.2000-4.9000 Vitamin D (25-Hydroxy) (test code = Vitamin D 51.9000 ng/mL 30 .0000-100.0000 (25-Hydroxy)) [id number] 09:08:00 Test Item Value Reference Range Comments WBC (test code = WBC) 9.4000 4.0000-10.0000 Lymphocytes % (test code = Lymphocytes %) 23.9000 % 22.400 0-43.6000 MID% (test code = MID%) 5.3000 % 1.2000-11.2000 Neutrophils % (test code = Neutrophils %) 70.8000 % 48.900 0-69.9000 Lymphocytes (test code = Lymphocytes) 2.2000 1.2000-3.2 000 MID (test code = MID) 0.6000 0.1000-1.1000 Neutrophils (test code = Neutrophils) 6.6000 1.5000-6.7 000 RBC (test code = RBC) 4.0100 3.7000-4.9000 HGB (test code = HGB) 13.1000 g/dL 11.2000-14.4000 HCT (test code = HCT) 35.5000 % 34.0000-44.0000 MCV (test code = MCV) 88.5000 fL 80.0000-94.0000 MCH (test code = MCH) 32.8000 pg 27.0000-34.0000 MCHC (test code = MCHC) 37.0000 g/dL 31.5000-36.0000 RDW (test code = RDW) 14.6000 11.0000-18.0000 PLT (test code = PLT) 244.0000 140.0000-440.0000 MPV (test code = MPV) 9.6000 fL 6.8000-10.6000 [id number] 09:08:00 Test Item Value Reference Range Comments Creatinine (test code = Creatinine) 0.8000 mg/dL 0.5000-1.200 0 Cr Clearance (Est) (test code = Cr 95.0100 75.0000-115.0 000 Clearance (Est)) Glucose (test code = Glucose) 219.0000 mg/dL 70.0000-118.0000 BUN (test code = BUN) 15.0000 mg/dL 7.0000-22.0000 Sodium (test code = Sodium) 140.0000 mmol/L 128.0000-145.0000 Potassium (test code = Potassium) 4.0000 mmol/L 3.6000-5.1000 Chloride (test code = Chloride) 108.0000 mmol/L 96.0000-108.0000 CO2 (test code = CO2) 30.0000 mmol/L 18.0000-33.0000 Calcium (test code = Calcium) 11.0800 mg/dL 8.0000-10.3000 Alkaline Phosphatase (test code = Alkaline 108.0000 42.00 00-141.0000 Phosphatase) ALT (SGPT) (test code = ALT (SGPT)) 15.0000 10.0000-47.0 000 AST (SGOT) (test code = AST (SGOT)) 10.0000 11.0000-37.0 000 Bilirubin, Total (test code = Bilirubin, 0.4000 mg/dL 0.0000- 1.6000 Total) Albumin (test code = Albumin) 4.5000 g/dL 3.5000-5.5000 Protein, Total (test code = Protein, 7.5000 g/dL 6.4000-8.10 00 Total) [id number] 14:15:00 Test Item Value Reference Range Comments Creatinine (test code = Creatinine) 0.8200 mg/dL 0.5700-1.000 0 Cr Clearance (Est) (test code = Cr 100.2300 75.0000-115.0 000 Clearance (Est)) Glucose (test code = Glucose) 142.0000 mg/dL 65.0000-99.0000 BUN (test code = BUN) 14.0000 mg/dL 8.0000-27.0000 eGFR Rsl-Dhcoswe-Dxcfzpnv (test code = 75.0000 eGFR Puq-Fxlolra-Cihjhkfv) eGFR -Zambian (test code = eGFR 86.0000 -Zambian) BUN/Creat Ratio (test code = BUN/Creat 17.0000 11.0000-2 6.0000 Ratio) Sodium (test code = Sodium) 144.0000 mmol/L 134.0000-144.0000 Potassium (test code = Potassium) 5.0000 mmol/L 3.5000-5.2000 Chloride (test code = Chloride) 103.0000 mmol/L 97.0000-108.0000 CO2 (test code = CO2) 27.0000 mmol/L 18.0000-29.0000 Calcium (test code = Calcium) 9.9000 mg/dL 8.7000-10.3000 Protein, Total (test code = Protein, 6.7000 g/dL 6.0000-8.50 00 Total) Albumin (test code = Albumin) 3.8000 g/dL 3.6000-4.8000 Globulin (test code = Globulin) 2.9000 g/dL 1.5000-4.5000 A/G Ratio (test code = A/G Ratio) 1.3000 1.1000-2.5000 Bilirubin, Total (test code = Bilirubin, 0.3000 mg/dL 0.0000- 1.2000 Total) Alkaline Phosphatase (test code = Alkaline 93.0000 39.00 00-117.0000 Phosphatase) AST (SGOT) (test code = AST (SGOT)) 15.0000 0.0000-40.00 00 ALT (SGPT) (test code = ALT (SGPT)) 10.0000 0.0000-32.00 00 Vitamin D (25-Hydroxy) (test code = 56.1000 ng/mL 30.0000-100. 0000 Vitamin D (25-Hydroxy)) [id number] 02:04:00 Test Item Value Reference Range Comments WBC (test code = WBC) 8.1000 4.0000-10.0000 Lymphocytes % (test code = Lymphocytes %) 20.9000 % 22.400 0-43.6000 MID% (test code = MID%) 7.9000 % 1.2000-11.2000 Neutrophils % (test code = Neutrophils %) 71.2000 % 48.900 0-69.9000 Lymphocytes (test code = Lymphocytes) 1.6000 1.2000-3.2 000 MID (test code = MID) 0.8000 0.1000-1.1000 Neutrophils (test code = Neutrophils) 5.7000 1.5000-6.7 000 RBC (test code = RBC) 3.9600 3.7000-4.9000 HGB (test code = HGB) 11.5000 g/dL 11.2000-14.4000 HCT (test code = HCT) 35.0000 % 34.0000-44.0000 MCV (test code = MCV) 88.2000 fL 80.0000-94.0000 MCH (test code = MCH) 29.0000 pg 27.0000-34.0000 MCHC (test code = MCHC) 32.9000 g/dL 31.5000-36.0000 RDW (test code = RDW) 14.9000 11.0000-18.0000 PLT (test code = PLT) 280.0000 140.0000-440.0000 MPV (test code = MPV) 8.6000 fL 6.8000-10.6000 [id number] 02:03:00 Test Item Value Reference Range Comments Creatinine (test code = Creatinine) 0.9000 mg/dL 0.5000-1.200 0 Cr Clearance (Est) (test code = Cr 95.8500 75.0000-115.0 000 Clearance (Est)) Glucose (test code = Glucose) 185.0000 mg/dL 70.0000-118.0000 BUN (test code = BUN) 13.0000 mg/dL 7.0000-22.0000 Sodium (test code = Sodium) 143.0000 mmol/L 128.0000-145.0000 Potassium (test code = Potassium) 4.8000 mmol/L 3.6000-5.1000 Chloride (test code = Chloride) 105.0000 mmol/L 96.0000-108.0000 CO2 (test code = CO2) 29.0000 mmol/L 18.0000-33.0000 Calcium (test code = Calcium) 10.1400 mg/dL 8.0000-10.3000 Alkaline Phosphatase (test code = Alkaline 94.0000 42.00 00-141.0000 Phosphatase) ALT (SGPT) (test code = ALT (SGPT)) 7.0000 10.0000-47.0 000 AST (SGOT) (test code = AST (SGOT)) 8.0000 11.0000-37.0 000 Bilirubin, Total (test code = Bilirubin, 0.4000 mg/dL 0.0000- 1.6000 Total) Albumin (test code = Albumin) 4.4000 g/dL 3.5000-5.5000 Protein, Total (test code = Protein, 7.5000 g/dL 6.4000-8.10 00 Total) eGFR -Zambian (test code = eGFR 81.0000 60.0000- 125.0000 -Zambian) eGFR Ecr-Zbqbrcw-Qzcwhqgz (test code = 67.0000 60.0000-1 25.0000 eGFR Qoj-Edgkkqg-Nhlrpxwp) Vitamin D (25-Hydroxy)2014-12-09 14:23:00 Test Item Value Reference Range Comments Vitamin D (25-Hydroxy) (test code = Vitamin D 44.7000 ng/mL 30 .0000-100.0000 (25-Hydroxy)) [id number] 02:09:00 Test Item Value Reference Range Comments WBC (test code = WBC) 7.2000 4.2000-10.0000 Lymphocytes % (test code = Lymphocytes %) 31.5000 % 22.400 0-43.6000 MID% (test code = MID%) 6.2000 % 1.2000-11.2000 Neutrophils % (test code = Neutrophils %) 62.3000 % 48.900 0-69.9000 Lymphocytes (test code = Lymphocytes) 2.2000 1.2000-3.2 000 MID (test code = MID) 0.5000 0.1000-1.1000 Neutrophils (test code = Neutrophils) 4.5000 1.5000-6.7 000 RBC (test code = RBC) 3.8300 4.5000-6.3000 HGB (test code = HGB) 11.2000 g/dL 14.0000-18.0000 HCT (test code = HCT) 32.8000 % 41.0000-51.0000 MCV (test code = MCV) 85.7000 fL 80.0000-94.0000 MCH (test code = MCH) 29.3000 pg 27.0000-34.0000 MCHC (test code = MCHC) 34.1000 g/dL 31.5000-36.0000 RDW (test code = RDW) 14.8000 11.0000-18.0000 PLT (test code = PLT) 237.0000 140.0000-440.0000 MPV (test code = MPV) 8.6000 fL 6.8000-10.6000 [id number] 02:09:00 Test Item Value Reference Range Comments Creatinine (test code = Creatinine) 1.0000 mg/dL 0.5000-1.200 0 Cr Clearance (Est) (test code = Cr 88.8400 75.0000-115.0 000 Clearance (Est)) Glucose (test code = Glucose) 282.0000 mg/dL 70.0000-118.0000 BUN (test code = BUN) 13.0000 mg/dL 7.0000-22.0000 Sodium (test code = Sodium) 138.0000 mmol/L 128.0000-145.0000 Potassium (test code = Potassium) 4.1000 mmol/L 3.6000-5.1000 Chloride (test code = Chloride) 104.0000 mmol/L 96.0000-108.0000 CO2 (test code = CO2) 29.0000 mmol/L 18.0000-33.0000 Calcium (test code = Calcium) 9.6800 mg/dL 8.0000-10.3000 Alkaline Phosphatase (test code = Alkaline 106.0000 42.00 00-141.0000 Phosphatase) ALT (SGPT) (test code = ALT (SGPT)) 18.0000 10.0000-47.0 000 AST (SGOT) (test code = AST (SGOT)) 14.0000 11.0000-37.0 000 Bilirubin, Total (test code = Bilirubin, 0.3000 mg/dL 0.0000- 1.6000 Total) Albumin (test code = Albumin) 4.3000 g/dL 3.5000-5.5000 Protein, Total (test code = Protein, 7.2000 g/dL 6.4000-8.10 00 Total) Vitamin D (25-Hydroxy)2014-09-09 13:55:00 Test Item Value Reference Range Comments Vitamin D (25-Hydroxy) (test code = Vitamin D 38.6000 ng/mL 30 .0000-100.0000 (25-Hydroxy)) [id number] 01:07:00 Test Item Value Reference Range Comments Creatinine (test code = Creatinine) 0.9000 mg/dL 0.5000-1.200 0 Cr Clearance (Est) (test code = Cr 97.2800 75.0000-115.0 000 Clearance (Est)) Glucose (test code = Glucose) 199.0000 mg/dL 70.0000-118.0000 BUN (test code = BUN) 14.0000 mg/dL 7.0000-22.0000 Sodium (test code = Sodium) 142.0000 mmol/L 128.0000-145.0000 Potassium (test code = Potassium) 4.2000 mmol/L 3.6000-5.1000 Chloride (test code = Chloride) 104.0000 mmol/L 96.0000-108.0000 CO2 (test code = CO2) 29.0000 mmol/L 18.0000-33.0000 Calcium (test code = Calcium) 10.3000 mg/dL 8.0000-10.3000 Alkaline Phosphatase (test code = Alkaline 91.0000 42.00 00-141.0000 Phosphatase) ALT (SGPT) (test code = ALT (SGPT)) 10.0000 10.0000-47.0 000 AST (SGOT) (test code = AST (SGOT)) 9.0000 11.0000-37.0 000 Bilirubin, Total (test code = Bilirubin, 0.4000 mg/dL 0.0000- 1.6000 Total) Albumin (test code = Albumin) 4.3000 g/dL 3.5000-5.5000 Protein, Total (test code = Protein, 7.7000 g/dL 6.4000-8.10 00 Total) [id number] 01:06:00 Test Item Value Reference Range Comments WBC (test code = WBC) 8.5000 4.2000-10.0000 Lymphocytes % (test code = Lymphocytes %) 20.7000 % 22.400 0-43.6000 MID% (test code = MID%) 6.3000 % 1.2000-11.2000 Neutrophils % (test code = Neutrophils %) 73.0000 % 48.900 0-69.9000 Lymphocytes (test code = Lymphocytes) 1.7000 1.2000-3.2 000 MID (test code = MID) 0.6000 0.1000-1.1000 Neutrophils (test code = Neutrophils) 6.2000 1.5000-6.7 000 RBC (test code = RBC) 3.5300 4.5000-6.3000 HGB (test code = HGB) 12.4000 g/dL 14.0000-18.0000 HCT (test code = HCT) 31.6000 % 41.0000-51.0000 MCV (test code = MCV) 89.5000 fL 80.0000-94.0000 MCH (test code = MCH) 35.1000 pg 27.0000-34.0000 MCHC (test code = MCHC) 39.2000 g/dL 31.5000-36.0000 RDW (test code = RDW) 14.7000 11.0000-18.0000 PLT (test code = PLT) 208.0000 140.0000-440.0000 MPV (test code = MPV) 7.2000 fL 6.8000-10.6000 Assessments Condition Name Status Diagnosis Date Treating Clinici an Other intervertebral disc Active degeneration, lumbar region Low back pain Active Pain in right hip Active Sciatica, unspecified side Active Chronic pain syndrome Active Efrain, L aneshia Annelise Osteoarthritis of left shoulder Active Efrain, Laneshia Annelise Degenerative joint disease of right Active Efrain, Laneshia Annelise hip Lumbar spondylosis Active Efrain, Clark berto Annelise Lesion of sciatic nerve, right lower Active limb Other intervertebral disc Active degeneration, lumbar region Sciatica, unspecified side Active Low back pain Active Chronic pain syndrome Active Efrain, L aneshia Annelise Osteoarthritis of left shoulder Active Efrain, Laneshia Annelise Degenerative joint disease of right Active Efrain, Laneshia Annelise hip Lumbar spondylosis Active Efrain, Clark berto Annelise Lesion of sciatic nerve, bilateral Active lower limbs Low back pain Active Pain in right hip Active Pain in left hip Active Chronic pain syndrome Active Efrain, L aneshia Annelise Osteoarthritis of left shoulder Active Efrain, Laneshia Annelise Degenerative joint disease of right Active Efrain, Laneshia Annelise hip Lumbar spondylosis Active Efrain, Clark berto Annelise Other intervertebral disc Active degeneration, lumbar region Low back pain Active Pain in left hip Active Pain in right hip Active Low back pain Active Cervicalgia Active Other cervical disc degeneration, unsp Active cervical region Other intervertebral disc Active degeneration, lumbar region Chronic pain syndrome Active Efrain, L aneshia Annelise Osteoarthritis of left shoulder Active Efrain, Laneshia Annelise Degenerative joint disease of right Active Efrain, Laneshia Annelise hip Lumbar spondylosis Active Efrain, Clark berto Annelise Chronic pain syndrome Active Efrain, L aneshia Annelise Osteoarthritis of left shoulder Active Efrain, Laneshia Annelise History of lymphoma Active Efrain, Cristofer eshia Annelise History of hip surgery Active Efrain, Laneshia Annelise Degenerative joint disease of right Active Efrain, Laneshia Annelise hip Lumbar spondylosis Active Efrain, Clark betro Annelise Chronic pain syndrome Active Efrain, L josephineshia Annelise Encounter for screening for other Active Efrain, Laneshia Annelise disorder Osteoarthritis of left shoulder Active Efrain, Laneshia Annelise History of lymphoma Active Efrain, Cristofer eshia Annelise History of hip surgery Active Efrain, Laneshia Annelise Degenerative joint disease of right Active Efrain, Laneshia Annelise hip Lumbar spondylosis Active Efrain, Clark berto Annelise Chronic prescription opiate use Active Efrain, Laneshia Annelise Chronic pain syndrome Active Efrain, L aneshia Annelise Osteoarthritis of left shoulder Active Efrain, Laneshia Annelise History of lymphoma Active Efrain, Cristofer eshia Annelise History of hip surgery Active Efrain, Laneshia Annelise Degenerative joint disease of right Active Efrain, Laneshia Annelise hip Lumbar spondylosis Active Efrain, Clark berto Annelise Chronic prescription opiate use Active Efrain, Laneshia Annelise Chronic pain syndrome Active Efrain, L aneshia Annelise Osteoarthritis of left shoulder Active Efrain, Laneshia Annelise History of lymphoma Active Efrain, Cristofer eshia Annelise History of hip surgery Active Efrain, Laneshia Annelise Degenerative joint disease of right Active Efrain, Laneshia Annelise hip Lumbar spondylosis Active Efrain, Clark berto Annelise Chronic prescription opiate use Active Efrain, Laneshia Annelise Unilateral primary osteoarthritis, Active left hip Trochanteric bursitis, right hip Active Pain in right hip Active Pain in left hip Active Chronic pain syndrome Active Efrain, L aneshia Annelise Osteoarthritis of left shoulder Active Efrain, Laneshia Annelise History of lymphoma Active Efrain, Cristofer eshia Annelise History of hip surgery Active Efrain, Laneshia Annelise Degenerative joint disease of right Active Efrain, Laneshia Annelise hip Lumbar spondylosis Active Efrain, Clark berto Annelise Chronic prescription opiate use Active Efrain, Laneshia Annelise Aftercare following joint replacement Active surgery Presence of right artificial hip joint Active Muscle weakness (generalized) Active Unspecified abnormalities of gait and Active mobility Aftercare following joint replacement Active surgery Presence of right artificial hip joint Active Pain in right hip Active Muscle weakness (generalized) Active Encounters Start End Encounter Admission Attending Care Care Encounter Date/Time Date/Time Type Type Clinicians Facility Department ID 2020-05-13 2020-05-13 Outpatient AGNES Albarran [id number] 10:15:00 10:15:00 [facility] [id number] \T\ Sports [id number] Medicine [id number] 2020-05-13 2020-05-13 Outpatient [facility] [id number] 00:00:00 00:00:00 [facility] 2020-05-12 2020-05-12 Office/outp Sriram Bhatia [id number] 00:00:00 00:00:00 atient [id number] Visit Est 2020-04-15 2020-04-15 [facility] [id number] 09:05:00 09:05:00 [facility] [id number] \T\ Sports [id number] Medicine NB [id number] 2020-04-13 2020-04-13 Office/outp Sriram Bhatia [id number] 00:00:00 00:00:00 atient [id number] Visit Est 2020-03-25 2020-03-25 [facility] 4 [id number] 08:45:00 08:45:00 [facility] [id number] \T\ Sports [id number] Medicine NB [id number] 2020-03-16 2020-03-16 Office/outp Daquandanielle Velásquez e [id number] 00:00:00 00:00:00 atient le Visit Est 2020-03-11 2020-03-11 [facility] 5 [id number] 15:05:00 15:05:00 [facility] [id number] \T\ Sports [id number] Medicine NB [id number] 2020-02-26 2020-02-26 [facility] C [id number] 13:35:00 13:35:00 [facility] [id number] \T\ Sports [id number] Medicine NB [id number] 2020-02-20 2020-02-20 Outpatient [facility] [id number] 00:00:00 00:00:00 [facility] 2020-01-28 2020-01-28 [id number] 00:00:00 Karen Flynn rn [facility] 2020-01-21 2020-01-21 Office/outp [facility] [id number] 00:00:00 00:00:00 atient Visit Est 2019-12-31 2019-12-31 Outpatient Mookie [facility] [id number] 00:00:00 00:00:00 Rina liriano [facility] [place] [facility] 2019-12-25 2019-12-25 Office/outp Tyson Marin e [id number] 00:00:00 00:00:00 atient le [place] Visit [place] 2019-11-18 2019-11-18 Office/outp Fakrissyttalistair Marin e [id number] 00:00:00 00:00:00 atient le [place] Visit Est [place] 2019-11-10 2019-11-10 Mookie [facility] 00:00:00 00:00:00 Mara Flynn rn [facility] [place] 2019-11-04 2019-11-04 Outpatient [facility] [id number] 00:00:00 00:00:00 rn [facility] [place] 2019-11-03 2019-11-03 Outpatient [facility] [id number] 00:00:00 00:00:00 rn [facility] [place] 2019-11-02 2019-11-02 Outpatient [facility] [id number] 00:00:00 00:00:00 rn [facility] [place] [facility] 2019-10-15 2019-10-15 Outpatient [facility] [id number] 00:00:00 00:00:00 rn [facility] [place] [facility] 2019-10-14 2019-10-14 Education Tyson Mejias [id number] 00:00:00 00:00:00 about le Svene smoking [place] cessation for greater than 10 minutes 2019-10-09 2019-10-09 Outpatient [facility] [id number] 00:00:00 00:00:00 rn [facility] 2019-10-08 2019-10-08 Mookie Maurice [facility] 00:00:00 00:00:00 Karen Flynn rn [facility] [place] [facility] 2019-09-24 2019-09-24 Outpatient [facility] [id number] 00:00:00 00:00:00 rn [facility] [place] [facility] 2019-09-17 2019-09-17 Office/outp [facility] [id number] 00:00:00 00:00:00 atient Visit [email or web address] 2019-09-10 2019-09-10 Outpatient AGNES Barney [id number] 08:00:00 08:00:00 [facility] [id number] \T\ Sports [id number] [facility] [id number] 6313-03-09 2019-07-14 Office/outp Thais Plascencia [id number] 00:00:00 00:00:00 [facility] Est OutPT OutPT 2019-06-06 2019-06-06 Office/outp Tyson trinidad [id number] 00:00:00 00:00:00 atient perez Bain Visit Est [place] 2019-03-26 2019-03-26 Outpatient [facility] [id number] 00:00:00 00:00:00 rn [facility] [place] [facility] 2019-02-25 2019-02-25 Outpatient [facility] [id number] 00:00:00 00:00:00 rn [facility] [place] [facility] 2018-11-13 2018-11-13 Outpatient Mookie [facility] [id number] 00:00:00 00:00:00 Rina liriano [facility] [place] [facility] 2018-10-21 2018-10-21 Office/outp [facility] [id number] 00:00:00 00:00:00 atient Visit Est 2018-09-19 2018-09-19 Office/outp Sriram Bhatia [id number] 00:00:00 00:00:00 atient [id number] Visit Est 2018-09-19 2018-09-19 Outpatient [facility] [id number] 00:00:00 00:00:00 rn [facility] [place] [facility] 2018-08-19 2018-08-19 Mookie Mederos [facility] [id number] 00:00:00 00:00:00 Mara Flynn rn [facility] [place] [facility] 2018-08-09 2018-08-09 Outpatient [facility] [id number] 00:00:00 00:00:00 rn [facility] [place] [facility] 2018-08-06 2018-08-06 Office/outp Arpan Antony [id number] 00:00:00 00:00:00 atient Visit Est 2018-08-05 2018-08-05 Outpatient [facility] [id number] 00:00:00 00:00:00 rn [facility] [place] [facility] 2018-07-11 2018-07-11 Office/outp [facility] [id number] 00:00:00 00:00:00 atient Visit Est 2018-06-12 2018-06-12 Office/outp Peppreyelenatoby Pabonfayeraul e [id number] 00:00:00 00:00:00 atient le [place] Visit Est [place] 2018-06-12 2018-06-12 Outpatient [facility] [id number] 00:00:00 00:00:00 rn [facility] [place] [facility] 2018-06-06 2018-06-06 Outpatient [facility] [id number] 00:00:00 00:00:00 rn [facility] [place] [facility] 2018-05-27 2018-05-27 Outpatient Mookie [facility] [id number] 00:00:00 00:00:00 Rina liriano [facility] [place] 2018-05-22 2018-05-22 Josafat Mookie [facility] [id number] 00:00:00 00:00:00 Karen Flynn rn [facility] [place] [facility] 2018-05-15 2018-05-15 Office/outp Arpan [place] [id number] 00:00:00 00:00:00 atient Visit Est 2018-05-06 2018-05-06 Outpatient [facility] [id number] 00:00:00 00:00:00 rn [facility] [place] 2018-04-18 2018-04-18 Outpatient Mookie [facility] [id number] 00:00:00 00:00:00 Rina liriano [facility] [place] [facility] 2018-04-03 2018-04-03 Office/outp [facility] [id number] 00:00:00 00:00:00 atient Visit Est 2018-02-25 2018-02-25 Gatito Mookie [facility] [id number] 00:00:00 00:00:00 Mara Flynn rn [facility] [place] [facility] 2018-01-25 2018-01-25 Outpatient [facility] [id number] 00:00:00 00:00:00 rn [facility] [place] 2018-01-13 2018-01-13 Outpatient [facility] [id number] 00:00:00 00:00:00 rn [facility] [place] [facility] 2018-01-09 2018-01-09 Outpatient [facility] [id number] 00:00:00 00:00:00 rn [facility] [place] [facility] 2017-12-27 2017-12-27 Outpatient Mookie [facility] [id number] 00:00:00 00:00:00 Rina liriano [facility] [place] 2017-12-11 2017-12-11 Outpatient Anatoliy [facility] [id number] 15:35:00 15:35:00 [facility] [id number]-B \T\ Sports [id number] Medicine NB [id number] 2017-11-28 2017-11-28 Outpatient [facility] [id number] 00:00:00 00:00:00 rn [facility] [place] 2017-11-23 2017-11-23 Outpatient Mookie [facility] [id number] 00:00:00 00:00:00 Rina liriano [facility] [place] 2017-10-26 2017-10-26 Outpatient Mookie [facility] [id number] 00:00:00 00:00:00 Rina liriano [facility] [place] 2017-10-25 2017-10-25 JosafatMookie [facility] [id number] 00:00:00 00:00:00 Karen Flynn rn [facility] [place] 2017-10-24 2017-10-24 [id number] 10:35:00 10:35:00 [facility] [id number]-8 \T\ Sports [id number] Medicine NB [id number] 2017-10-19 2017-10-19 Outpatient [facility] [id number] 00:00:00 00:00:00 rn [facility] [place] 2017-10-08 2017-10-08 Outpatient [facility] [id number] 00:00:00 00:00:00 rn [facility] [place] 2017-06-13 2017-06-13 Outpatient [facility] [id number] 00:00:00 00:00:00 rn [facility] [place] 2017-06-08 2017-06-08 YaakovMiss Mookie lopez [facility] n [id number] 00:00:00 00:00:00 Lynn M Rina rn [facility] Center 2017-06-06 2017-06-06 Outpatient Angelique Damico [id number] 00:00:00 00:00:00 Rina rn [facility] Center 2017-05-28 2017-05-28 Outpatient Angelique Joseph [id number] 00:00:00 00:00:00 rn Medical [facility] On[facility] On[facility] Center 2017-03-27 2017-03-27 Outpatient Angelique Damico [id number] 00:00:00 00:00:00 Rina rn [facility] On[facility] Center 2017-03-13 2017-03-13 Outpatient Angelique Joseph [id number] 00:00:00 00:00:00 rn [facility] On[facility] Oncology Center Center 2017-02-09 2017-02-09 Outpatient Angelique Joseph [id number] 00:00:00 00:00:00 rn Medical Medical Oncology Oncology Center Center 2017-01-15 2017-01-15 Outpatient Angelique Joseph [id number] 00:00:00 00:00:00 rn Medical Medical Oncology Oncology Center Center 2016-09-26 2016-09-26 JosafatAngelique 20 [id number] 00:00:00 00:00:00 Karen rn [facility] Oncology Oncology Center Center 2016-05-23 2016-05-23 Outpatient Angelique Joseph [id number] 00:00:00 00:00:00 rn Medical Medical Oncology Oncology Center Center 2016-05-18 2016-05-18 Outpatient Angelique Joseph [id number] 00:00:00 00:00:00 rn Medical Medical Oncology Oncology Center Center 2016-04-25 2016-04-25 Outpatient Angelique Joseph [id number] 00:00:00 00:00:00 rn Medical Medical Oncology Oncology Center Center 2016-03-16 2016-03-16 Outpatient Angelique Joseph [id number] 00:00:00 00:00:00 rn Medical Medical Oncology Oncology Center Center 2016-03-13 2016-03-13 GatitoAngelique 20 [id number] 00:00:00 00:00:00 Mara rn Medical Medical Oncology Oncology Center Center 2016-02-07 2016-02-07 Outpatient Angelique Joseph [id number] 00:00:00 00:00:00 rn Medical Medical Oncology Oncology Center Center 2016-01-20 2016-01-20 Outpatient Angelique Joseph [id number] 00:00:00 00:00:00 rn Medical Medical Oncology Oncology Center Center 2015-12-20 2015-12-20 Outpatient Angelique Joseph [id number] 00:00:00 00:00:00 rn Medical Medical Oncology Oncology Center Center 2015-12-14 2015-12-14 Outpatient Angelique Joseph [id number] 00:00:00 00:00:00 rn Medical Medical Oncology Oncology Center Center 2015-08-18 2015-08-18 Angelique Maurice 20 [id number] 00:00:00 00:00:00 Karen rn Medical Medical Oncology Oncology Center Center 2015-04-19 2015-04-19 Angelique Maurice 20 [id number] 00:00:00 00:00:00 Karen rn Medical Medical Oncology Oncology [facility] Center 2015-04-14 2015-04-14 Outpatient Angelique Joseph [id number] 00:00:00 00:00:00 rn Medical Medical Oncology Oncology Center Center 2015-04-12 2015-04-12 Outpatient Angelique Joseph [id number] 00:00:00 00:00:00 rn Medical Medical Oncology Oncology Center Center 2015-03-25 2015-03-25 Outpatient Angelique Joseph [id number] 00:00:00 00:00:00 rn Medical Medical Oncology Oncology Center Center 2015-03-11 2015-03-11 Outpatient Angelique Joseph [id number] 00:00:00 00:00:00 rn Medical Medical Oncology Oncology Center Center 2015-02-02 2015-02-02 Outpatient Angelique Joseph [id number] 00:00:00 00:00:00 rn Medical Medical Oncology Oncology [facility] Center 2015-01-06 2015-01-06 Outpatient Angelique Joseph [id number] 00:00:00 00:00:00 rn Medical Medical Oncology Oncology Center Center 2014-12-09 2014-12-09 GatitoAngelique 20 [id number] 00:00:00 00:00:00 Mara rn Medical Medical Oncology Oncology Center Center 2014-09-30 2014-09-30 Outpatient Angelique Joseph [id number] 00:00:00 00:00:00 rn Medical Medical Oncology Oncology Center Center 2014-09-09 2014-09-09 Angelique Maurice 20 [id number] 00:00:00 00:00:00 Karen rn Medical Medical Oncology Oncology Center Center 2014-07-03 2014-07-03 Outpatient Angelique Joseph [id number] 00:00:00 00:00:00 rn Medical Medical Oncology Oncology Center Center 2014-06-08 2014-06-08 [facility] 20 [id number] 00:00:00 00:00:00 Karen rn Medical Medical Oncology Oncology Center Center 2014-05-26 2014-05-26 Outpatient [facility] [id number] 00:00:00 00:00:00 rn Medical Medical Oncology Oncology Center [facility] 2014-04-08 2014-04-08 Outpatient [facility] [id number] 00:00:00 00:00:00 rn Medical Medical Oncology Oncology Center [facility] 2014-04-01 2014-04-01 [facility] 20 [id number] 00:00:00 00:00:00 Karen rn Medical Medical Oncology Oncology Center [facility] 2014-03-31 2014-03-31 Outpatient [facility] [id number] 00:00:00 00:00:00 rn Medical Medical Oncology Oncology Center [facility] 2014-03-26 2014-03-26 Outpatient [facility] [id number] 00:00:00 00:00:00 rn Medical Medical Oncology Oncology Center [facility] 2014-03-19 2014-03-19 Outpatient [facility] [id number] 00:00:00 00:00:00 rn Medical Medical Oncology Oncology Center [facility] 2014-03-12 2014-03-12 Outpatient [facility] [id number] 00:00:00 00:00:00 rn Medical Medical Oncology Oncology Center [facility] 2014-01-27 2014-01-27 Outpatient [facility] [id number] 00:00:00 00:00:00 rn Medical Medical Oncology Oncology Center [facility] Immunizations Ordered Immunization Filled Immunization Date Status Commen ts Refusal Reason Name Name Influenza Virus 2014-04-01 Completed Vaccine Split 00:00:00 Influenza Virus 2014-04-01 Completed Vaccine Split 00:00:00 Payers Payer Name Policy Type Policy Number Effective Date Expiration D ate Medicare of [facility] [id number] Social History Smoking Status Start Date Stop Date Yes - but quit (former) 2020-05-13 00:00:00 2020-05-13 00:00 :00 Social History Observation Description Sex Female Vital Signs Vital Name Observation Time Observation Value Comments BMI 2020-05-13 14:02:25 33.7700 BP ritter 2020-05-13 14:02:25 87.0000 mm[Hg] Bdy height 2020-05-13 14:02:25 62.5000 [in_i] SaO2% BldA PulseOx 2020-05-13 14:02:25 99.0000 % Heart rate 2020-05-13 14:02:25 94.0000 /min Resp rate 2020-05-13 14:02:25 18.0000 /min BP sys 2020-05-13 14:02:25 136.0000 mm[Hg] Body temperature 2020-05-13 14:02:25 97.2000 [degF] Weight 2020-05-13 14:02:25 187.6000 [lb_av] Height (inches) 2020-05-12 00:00:00 62.00 Weight (lbs) 2020-05-12 00:00:00 190.00 BMI 2020-05-12 00:00:00 35 Height (inches) 2020-04-13 00:00:00 62.00 Weight (lbs) 2020-04-13 00:00:00 194.00 BMI 2020-04-13 00:00:00 35 Height (inches) 2020-03-16 00:00:00 62.00 Weight (lbs) 2020-03-16 00:00:00 190.00 BMI 2020-03-16 00:00:00 35 BMI 2020-01-28 14:04:53 34.4500 BP ritter 2020-01-28 14:04:53 87.0000 mm[Hg] Bdy height 2020-01-28 14:04:53 62.5000 [in_i] Heart rate 2020-01-28 14:04:53 95.0000 /min Resp rate 2020-01-28 14:04:53 18.0000 /min BP sys 2020-01-28 14:04:53 166.0000 mm[Hg] Body temperature 2020-01-28 14:04:53 96.4000 [degF] Weight 2020-01-28 14:04:53 191.4000 [lb_av] Height (inches) 2020-01-21 00:00:00 62.00 Weight (lbs) 2020-01-21 00:00:00 190.00 BMI 2020-01-21 00:00:00 35 Height (inches) 2019-12-25 00:00:00 62.00 Weight (lbs) 2019-12-25 00:00:00 190.00 BMI 2019-12-25 00:00:00 35 Height (inches) 2019-11-18 00:00:00 62.00 Weight (lbs) 2019-11-18 00:00:00 190.00 BMI 2019-11-18 00:00:00 35 BMI 2019-11-10 09:19:30 34.3400 BP ritter 2019-11-10 09:19:30 91.0000 mm[Hg] Bdy height 2019-11-10 09:19:30 62.5000 [in_i] SaO2% BldA PulseOx 2019-11-10 09:19:30 94.0000 % Heart rate 2019-11-10 09:19:30 83.0000 /min Resp rate 2019-11-10 09:19:30 16.0000 /min BP sys 2019-11-10 09:19:30 178.0000 mm[Hg] Body temperature 2019-11-10 09:19:30 96.8000 [degF] Weight 2019-11-10 09:19:30 190.8000 [lb_av] Height (inches) 2019-10-14 00:00:00 62.00 Weight (lbs) 2019-10-14 00:00:00 195.00 BMI 2019-10-14 00:00:00 36 BMI 2019-10-08 13:48:10 34.9900 BP ritter 2019-10-08 13:48:10 94.0000 mm[Hg] Bdy height 2019-10-08 13:48:10 62.5000 [in_i] SaO2% BldA PulseOx 2019-10-08 13:48:10 96.0000 % Heart rate 2019-10-08 13:48:10 89.0000 /min Resp rate 2019-10-08 13:48:10 16.0000 /min BP sys 2019-10-08 13:48:10 160.0000 mm[Hg] Body temperature 2019-10-08 13:48:10 97.9000 [degF] Weight 2019-10-08 13:48:10 194.4000 [lb_av] Weight (lbs) 2019-09-17 00:00:00 195.00 BMI 2019-09-17 00:00:00 36 Height (inches) 2019-09-17 00:00:00 62.00 Height (inches) 2019-07-14 00:00:00 62.00 Weight (lbs) 2019-07-14 00:00:00 197.00 BP Systolic 2019-07-14 00:00:00 149 mm[Hg] BP Diastolic 2019-07-14 00:00:00 87 mm[Hg] Pulse 2019-07-14 00:00:00 91 /min Respiration 2019-07-14 00:00:00 17 /min BMI 2019-07-14 00:00:00 36 Pulse Oximetry 2019-07-14 00:00:00 94 /min Height (inches) 2019-06-06 00:00:00 62.00 Weight (lbs) 2019-06-06 00:00:00 194.00 BP Systolic 2019-06-06 00:00:00 184 mm[Hg] BP Diastolic 2019-06-06 00:00:00 105 mm[Hg] Pulse 2019-06-06 00:00:00 92 /min Respiration 2019-06-06 00:00:00 17 /min BMI 2019-06-06 00:00:00 35 Pulse Oximetry 2019-06-06 00:00:00 97 /min Height (inches) 2018-10-21 00:00:00 62.00 Weight (lbs) 2018-10-21 00:00:00 179.00 BP Systolic 2018-10-21 00:00:00 151 mm[Hg] BP Diastolic 2018-10-21 00:00:00 86 mm[Hg] Pulse 2018-10-21 00:00:00 89 /min Respiration 2018-10-21 00:00:00 17 /min BMI 2018-10-21 00:00:00 33 Pulse Oximetry 2018-10-21 00:00:00 98 /min Height (inches) 2018-09-19 00:00:00 62.00 Weight (lbs) 2018-09-19 00:00:00 190.00 BP Systolic 2018-09-19 00:00:00 166 mm[Hg] BP Diastolic 2018-09-19 00:00:00 97 mm[Hg] Pulse 2018-09-19 00:00:00 90 /min Respiration 2018-09-19 00:00:00 17 /min BMI 2018-09-19 00:00:00 35 Pulse Oximetry 2018-09-19 00:00:00 98 /min BMI 2018-08-19 11:02:45 34.1300 BP ritter 2018-08-19 11:02:45 79.0000 mm[Hg] Bdy height 2018-08-19 11:02:45 62.5000 [in_i] Heart rate 2018-08-19 11:02:45 80.0000 /min Resp rate 2018-08-19 11:02:45 16.0000 /min BP sys 2018-08-19 11:02:45 144.0000 mm[Hg] Body temperature 2018-08-19 11:02:45 97.9000 [degF] Weight 2018-08-19 11:02:45 189.6000 [lb_av] Height (inches) 2018-08-06 00:00:00 62.00 Weight (lbs) 2018-08-06 00:00:00 190.00 BP Systolic 2018-08-06 00:00:00 170 mm[Hg] BP Diastolic 2018-08-06 00:00:00 92 mm[Hg] Pulse 2018-08-06 00:00:00 74 /min Respiration 2018-08-06 00:00:00 17 /min BMI 2018-08-06 00:00:00 35 Pulse Oximetry 2018-08-06 00:00:00 98 /min Height (inches) 2018-07-11 00:00:00 62.00 Weight (lbs) 2018-07-11 00:00:00 192.00 BP Systolic 2018-07-11 00:00:00 167 mm[Hg] BP Diastolic 2018-07-11 00:00:00 97 mm[Hg] Pulse 2018-07-11 00:00:00 102 /min Respiration 2018-07-11 00:00:00 17 /min BMI 2018-07-11 00:00:00 35 Pulse Oximetry 2018-07-11 00:00:00 99 /min Height (inches) 2018-06-12 00:00:00 62.00 Weight (lbs) 2018-06-12 00:00:00 193.00 BP Systolic 2018-06-12 00:00:00 191 mm[Hg] BP Diastolic 2018-06-12 00:00:00 98 mm[Hg] Pulse 2018-06-12 00:00:00 93 /min Respiration 2018-06-12 00:00:00 17 /min BMI 2018-06-12 00:00:00 35 Pulse Oximetry 2018-06-12 00:00:00 97 /min BMI 2018-05-22 12:01:32 34.6300 BP ritter 2018-05-22 12:01:32 66.0000 mm[Hg] Bdy height 2018-05-22 12:01:32 62.5000 [in_i] Heart rate 2018-05-22 12:01:32 66.0000 /min Resp rate 2018-05-22 12:01:32 20.0000 /min BP sys 2018-05-22 12:01:32 111.0000 mm[Hg] Body temperature 2018-05-22 12:01:32 97.5000 [degF] Weight 2018-05-22 12:01:32 192.4000 [lb_av] Height (inches) 2018-05-15 00:00:00 62.00 Weight (lbs) 2018-05-15 00:00:00 187.00 BP Systolic 2018-05-15 00:00:00 152 mm[Hg] BP Diastolic 2018-05-15 00:00:00 89 mm[Hg] Pulse 2018-05-15 00:00:00 90 /min Respiration 2018-05-15 00:00:00 17 /min BMI 2018-05-15 00:00:00 34 Pulse Oximetry 2018-05-15 00:00:00 98 /min Height (inches) 2018-04-03 00:00:00 62.00 Weight (lbs) 2018-04-03 00:00:00 190.00 BP Systolic 2018-04-03 00:00:00 140 mm[Hg] BP Diastolic 2018-04-03 00:00:00 92 mm[Hg] Pulse 2018-04-03 00:00:00 95 /min Respiration 2018-04-03 00:00:00 17 /min BMI 2018-04-03 00:00:00 35 Pulse Oximetry 2018-04-03 00:00:00 97 /min BMI 2018-02-25 14:35:16 33.6600 BP ritter 2018-02-25 14:35:16 81.0000 mm[Hg] Bdy height 2018-02-25 14:35:16 62.5000 [in_i] Heart rate 2018-02-25 14:35:16 94.0000 /min Resp rate 2018-02-25 14:35:16 20.0000 /min BP sys 2018-02-25 14:35:16 162.0000 mm[Hg] Body temperature 2018-02-25 14:35:16 98.9000 [degF] Weight 2018-02-25 14:35:16 187.0000 [lb_av] BMI 2017-10-25 11:01:46 34.8500 BP ritter 2017-10-25 11:01:46 57.0000 mm[Hg] Bdy height 2017-10-25 11:01:46 62.5000 [in_i] Heart rate 2017-10-25 11:01:46 103.0000 /min Resp rate 2017-10-25 11:01:46 18.0000 /min BP sys 2017-10-25 11:01:46 99.0000 mm[Hg] Body temperature 2017-10-25 11:01:46 96.0000 [degF] Weight 2017-10-25 11:01:46 193.6000 [lb_av] BMI 2017-06-08 11:44:43 37.0100 BP ritter 2017-06-08 11:44:43 67.0000 mm[Hg] Bdy height 2017-06-08 11:44:43 62.5000 [in_i] Heart rate 2017-06-08 11:44:43 92.0000 /min Resp rate 2017-06-08 11:44:43 18.0000 /min BP sys 2017-06-08 11:44:43 123.0000 mm[Hg] Body temperature 2017-06-08 11:44:43 97.7000 [degF] Weight 2017-06-08 11:44:43 205.6000 [lb_av] BMI 2016-09-26 14:39:10 34.0900 BP ritter 2016-09-26 14:39:10 91.0000 mm[Hg] Bdy height 2016-09-26 14:39:10 62.5000 [in_i] Heart rate 2016-09-26 14:39:10 94.0000 /min Resp rate 2016-09-26 14:39:10 22.0000 /min BP sys 2016-09-26 14:39:10 145.0000 mm[Hg] Body temperature 2016-09-26 14:39:10 98.2000 [degF] Weight 2016-09-26 14:39:10 189.4000 [lb_av] BMI 2016-03-13 09:20:37 34.5200 BP ritter 2016-03-13 09:20:37 81.0000 mm[Hg] Bdy height 2016-03-13 09:20:37 62.5000 [in_i] Heart rate 2016-03-13 09:20:37 79.0000 /min Resp rate 2016-03-13 09:20:37 20.0000 /min BP sys 2016-03-13 09:20:37 154.0000 mm[Hg] Body temperature 2016-03-13 09:20:37 98.1000 [degF] Weight 2016-03-13 09:20:37 191.8000 [lb_av] BMI 2015-08-18 14:16:45 37.3300 BP ritter 2015-08-18 14:16:45 84.0000 mm[Hg] Bdy height 2015-08-18 14:16:45 62.5000 [in_i] Heart rate 2015-08-18 14:16:45 94.0000 /min Resp rate 2015-08-18 14:16:45 12.0000 /min BP sys 2015-08-18 14:16:45 144.0000 mm[Hg] Body temperature 2015-08-18 14:16:45 98.0000 [degF] Weight 2015-08-18 14:16:45 207.4000 [lb_av] BMI 2015-04-19 14:56:54 38.6600 BP ritter 2015-04-19 14:56:54 83.0000 mm[Hg] Bdy height 2015-04-19 14:56:54 62.5000 [in_i] Heart rate 2015-04-19 14:56:54 82.0000 /min Resp rate 2015-04-19 14:56:54 16.0000 /min BP sys 2015-04-19 14:56:54 147.0000 mm[Hg] Body temperature 2015-04-19 14:56:54 97.6000 [degF] Weight 2015-04-19 14:56:54 214.8000 [lb_av] BP sys 2014-12-09 14:14:52 137.0000 mm[Hg] Body temperature 2014-12-09 14:14:52 97.3000 [degF] Weight 2014-12-09 14:14:52 221.2000 [lb_av] BMI 2014-12-09 14:14:52 39.8100 BP ritter 2014-12-09 14:14:52 77.0000 mm[Hg] Bdy height 2014-12-09 14:14:52 62.5000 [in_i] Heart rate 2014-12-09 14:14:52 105.0000 /min Resp rate 2014-12-09 14:14:52 24.0000 /min BMI 2014-09-09 13:45:59 39.2400 BP ritter 2014-09-09 13:45:59 75.0000 mm[Hg] Bdy height 2014-09-09 13:45:59 62.5000 [in_i] Heart rate 2014-09-09 13:45:59 92.0000 /min Resp rate 2014-09-09 13:45:59 16.0000 /min BP sys 2014-09-09 13:45:59 113.0000 mm[Hg] Body temperature 2014-09-09 13:45:59 97.8000 [degF] Weight 2014-09-09 13:45:59 218.0000 [lb_av] BMI 2014-06-08 09:18:58 39.8100 BP ritter 2014-06-08 09:18:58 79.0000 mm[Hg] Bdy height 2014-06-08 09:18:58 62.5000 [in_i] Heart rate 2014-06-08 09:18:58 73.0000 /min Resp rate 2014-06-08 09:18:58 16.0000 /min BP sys 2014-06-08 09:18:58 120.0000 mm[Hg] Body temperature 2014-06-08 09:18:58 98.4000 [degF] Weight 2014-06-08 09:18:58 221.2000 [lb_av] BMI 2014-04-01 14:15:59 17.5500 BP ritter 2014-04-01 14:15:59 105.0000 mm[Hg] Bdy height 2014-04-01 14:15:59 62.5000 [in_i] Heart rate 2014-04-01 14:15:59 87.0000 /min Resp rate 2014-04-01 14:15:59 16.0000 /min BP sys 2014-04-01 14:15:59 177.0000 mm[Hg] Body temperature 2014-04-01 14:15:59 97.5000 [degF] Weight 2014-04-01 14:15:59 97.5000 [lb_av] Hospital Discharge Instructions No education material to displayNo education material to displayTitleDate Given Mccyxyydtrceeh41-63-3723HddwyBgtr EhitxQnvxbgayhuwlco02-33-0180CkxenXqrp Given Xwficybfolbsnd39-66-3775VvobgVfdp FaklgRemdtyyrriijzl65-50-1531GkvzhLofq Given Rsemgsjcysosem42-72-8057TdbdqVejv TupbaAgiogmmunorjnn14-44-8422WmpcwCssa Given Bitcnkoxiobzlh61-72-2909YbmauBgvc WjhtdPndgnuhkhvgrqj45-89-5450JmdjhBzcs Given Tugscrzpgcsuew34-16-0970OaorbTnyb WbyhtQagpdoichxitzb22-62-1269NqotqRely Given Wfzuszhhczcjkf85-96-8933Bsvrdgpjbtgbrh82-40-4538Hsmnv Date GivenOsteoarthritis 61-55-6487Oluwy Date GivenOsteoarthritis 30-22-7688Bdmuwfxamhqrrr 06-12-2018 Title Date GivenOsteoarthritis 27-98-6384Mnfnf Date GivenOsteoarthritis 04-03-2018
[2020-05-28 14:58] LABS: ANION GAP 9 (5-19); BLOOD UREA NITROGEN 36 mg/dL (7-20); CALCIUM 9.8 mg/dL (8.4-10.2); CARBON DIOXIDE 26 mmol/L (22-30); CHLORIDE 102 mmol/L (98-107); GLUCOSE 98 mg/dL (75-110)
== END ==
LOC: OD 09:27
PROVIDERS: ATTEND Physician Assistant
DX: R06.02 Shortness of breath (principal); D50.8 Other iron deficiency anemias
CPT/HCPCS: 36415; 71046; 80048; 80053; 82728; 83880; 85025; 86140

== ENCOUNTER → 2020-06-01 | Outpatient (CLI) | payer MEDICARE, MEDICAID ==
--- NOTE | 2020-06-01 11:36 | RADIOLOGY REPORT (SQ) ---
EXAM DESCRIPTION: CHEST 2 VIEWS IMAGES COMPLETED DATE/TIME: 06/01/2020 11:27 am REASON FOR STUDY: (R06.02)SHORTNESS OF BREATH COMPARISON: 05/27/2020. EXAM PARAMETERS: NUMBER OF VIEWS: two views TECHNIQUE: Digital Frontal and Lateral radiographic views of the chest acquired. RADIATION DOSE: NA LIMITATIONS: none FINDINGS: LUNGS AND PLEURA: Faint infiltrate in the right upper lobe, unchanged. Otherwise clear. No pleural effusion or pneumothorax. MEDIASTINUM AND HILAR STRUCTURES: No masses or contour abnormalities. HEART AND VASCULAR STRUCTURES: Heart normal size. No evidence for failure. BONES: No acute findings. Degenerative changes in the spine. HARDWARE: None in the chest. Hardware in the cervical spine. OTHER: No other significant finding. IMPRESSION: FAINT INFILTRATE IN THE RIGHT UPPER LOBE, UNCHANGED. TECHNICAL DOCUMENTATION: JOB ID: [id number] 2010 [employer]- All Rights Reserved Reading location - IP/workstation name: [email or web address]
[2020-06-01 12:27] LABS: ABSOLUTE LYMPHOCYTES (AUTO) 2.4 10^3/uL (0.5-4.7); ABSOLUTE MONOCYTES (AUTO) 0.9 10^3/uL (0.1-1.4); ABSOLUTE NEUT (AUTO) 9.8 10^3/uL (1.7-8.2); BASOPHILS % (AUTO) 0.3 % (0-2); EOSINOPHILS % (AUTO) 0.2 % (0-6); HEMATOCRIT 45.1 % (36.0-47.0); HEMOGLOBIN 14.7 g/dL (12.0-15.5); LYMPHOCYTES % (AUTO) 18.4 % (13-45); MEAN CORPUSCULAR HEMOGLOBIN 29.5 pg (27.0-33.4); MEAN CORPUSCULAR HGB CONC 32.5 g/dL (32.0-36.0); MEAN CORPUSCULAR VOLUME 91 fl (80-97); MONOCYTES % (AUTO) 6.9 % (3-13); PLATELET COUNT 300 10^3/uL (150-450); RED BLOOD COUNT 4.98 10^6/uL (3.72-5.28); RED CELL DISTRIBUTION WIDTH 14.8 % (11.5-14.0); SEGMENTED NEUTROPHILS % (AUTO) 74.2 % (42-78); TOTAL CELLS COUNTED % (AUTO) 100 %; WHITE BLOOD COUNT 13.2 10^3/uL (4.0-10.5)
[2020-06-01 13:04] LABS: ALBUMIN 4.1 g/dL (3.5-5.0); ALKALINE PHOSPHATASE 180 U/L (38-126); ANION GAP 11 (5-19); ASPARTATE AMINO TRANSFERASE 27 U/L (14-36); BILIRUBIN,DIRECT 0.4 mg/dL (0.0-0.4); BILIRUBIN,TOTAL 0.6 mg/dL (0.2-1.3); BLOOD UREA NITROGEN 29 mg/dL (7-20); CALCIUM 10.6 mg/dL (8.4-10.2); CARBON DIOXIDE 29 mmol/L (22-30); CHLORIDE 102 mmol/L (98-107); GLUCOSE 117 mg/dL (75-110); POTASSIUM 5.8 mmol/L (3.6-5.0); TOTAL PROTEIN 7.5 g/dL (6.3-8.2)
[2020-06-01 13:50] LABS: C-REACTIVE PROTEIN < 5.0 mg/L (<10.0)
--- NOTE | 2020-06-01 15:43 | RADIOLOGY REPORT (SQ) ---
EXAM DESCRIPTION: CTA CHEST IMAGES COMPLETED DATE/TIME: 06/01/2020 3:27 pm REASON FOR STUDY: (R06.02)SHORTNESS OF BREATH;(R79.89)OTHER SPECIFIED ABNORMAL FINDINGS OF BL R06.02 SHORTNESS OF BREATH D50.8 OTHER IRON DEFICIENCY ANEMIAS R79.89 OTHER SPECIFIED ABNORMAL FINDINGS OF BLOOD CHEMISTRY COMPARISON: Chest x-ray dated 06/01/2020 and 05/27/2020. TECHNIQUE: CT scan of the chest performed using helical scanning technique with dynamic intravenous contrast injection. Images reviewed with lung, soft tissue and bone windows. Reconstructed coronal and sagittal MPR images reviewed. Additional 3 dimensional post-processing performed to develop Maximal Intensity Projection images (SD P). All images stored on PACS. All CT scanners at this facility use dose modulation, iterative reconstruction, and/or weight based d osing when appropriate to reduce radiation dose to as low as reasonably achievable (ALARA). [facility]: Dose Right [facility]: CareDose [facility]: Dose Right [facility]: Teradose 4D [facility]: [employer] CONTRAST TYPE AND DOSE: contrast/concentration: Isovue 350.00 mmol/ml; Total Contrast Delivered: 65. 0 ml; Total Saline Delivered: 70.0 ml Contrast bolus adequate for pulmonary arteries and aorta. RENAL FUNCTION: BUN 29 creatinine 0.99. RADIATION DOSE: CT Rad equipment meets quality standard of care and radiation dose reduction techniq ues were employed. CTDIvol: 15.0 - 15.0 mGy. DLP: 540 mGy-cm. . LIMITATIONS: None. FINDINGS: LUNGS AND PLEURA: Irregular density in the right upper lobe measuring 3 cm. Small pulmona ry nodule in the right upper lobe measuring 3 mm. The remainder of the right lung and the left lung are otherwise clear. No pleural effusions or pleural calcifications. AORTA AND GREAT VESSELS: No aneurysm. No dissection. HEART: No pericardial effusion. No significant coronary artery calcifications. PULMONARY ARTERIES: No emboli visualized in the main pulmonary arteries or the segmental branches. HILAR AND MEDIASTINAL STRUCTURES: No identified masses or abnormal nodes. HARDWARE: None in the chest. UPPER ABDOMEN: No significant findings. Limited exam. THYROID AND OTHER SOFT TISSUES: No masses. No adenopathy. BONES: No acute or significant finding. 3D MIPS: Confirm above findings. OTHER: No other significant finding. IMPRESSION: 1. NORMAL CTA OF THE CHEST. NO PULMONARY EMBOLI. 2. IRREGULAR DENSITY IN THE RIGHT UPPER LOBE MOST LIKELY INFILTRATE SECONDARY TO PNEUMONIA. THE SHEILA GABBIE AND DISTRIBUTION IS NOT TYPICAL FOR COVID-19 INFECTION AND MORE LIKELY TO BE BACTERIAL. MALIGNAN T PROCESS IS LESS LIKELY BUT NOT ENTIRELY EXCLUDED. COMMENT: Quality ID # [id number]: Final reports with documentation of one or more dose reduction techniques (e.g., Automated exposure control, adjustment of the mA and/or kV according to patient size, use of iterative reconstruction technique) TECHNICAL DOCUMENTATION: JOB ID: [id number] 2010 [employer]- All Rights Reserved Reading location - IP/workstation name: [email or web address]
== END ==
LOC: OD 10:19
PROVIDERS: ATTEND Physician Assistant
DX: R06.02 Shortness of breath (principal); D50.8 Other iron deficiency anemias; R79.89 Other specified abnormal findings of blood chemistry
CPT/HCPCS: 36415; 71046; 71275; 80053; 82728; 85025; 85379; 86140